=== PATIENT | female | born 1955 | race Caucasian/White ===

== ENCOUNTER 2022-09-30 08:55 | Outpatient (CLI) | payer MEDICARE, SELFPAY ==
[2022-09-30 12:29] LABS: Kit Draw Collected
== END 2022-09-30 08:56 | disposition home or self-care (01) ==
LOC: ANHGOSHLAB 08:57
PROVIDERS: PCP Family Medicine; Visit Provider Family Medicine
DX: M85.80 Other specified disorders of bone density and structure, unspecified site (principal); E55.9 Vitamin D deficiency, unspecified; E53.8 Deficiency of other specified B group vitamins; Z79.899 Other long term (current) drug therapy; Z13.29 Encounter for screening for other suspected endocrine disorder; Z13.220 Encounter for screening for lipoid disorders
CPT/HCPCS: 36415

== ENCOUNTER 2024-07-29 09:45 | Outpatient (CLI) | payer MEDICARE, SELFPAY ==
[2024-07-29 19:19] LABS: Basophils Absolute Auto 0.1 K/mm3 (0.0-0.1); Eosinophils Absolute Auto 0.1 K/mm3 (0-0.3); Eosinophils Percent Auto 1.2 % (0-4.4); Hematocrit 44.3 % (37.0-47.0); Hemoglobin 14.8 g/dL (12.0-15.0); Immature Granulocyte Absolute 0.01 K/mm3 (0.00-0.031); Immature Granulocyte Percent A 0.2 % (0-0.5); Lymphocytes Absolute Auto 1.57 K/mm3 (0.9-3.2); Mean Corpuscular HGB Conc 33.4 g/dl (32-36); Mean Corpuscular Hemoglobin 32.2 pg (26-34); Mean Corpuscular Volume 96.3 fl (80-100); Mean Platelet Volume 12.2 fl (7.4-10.4); Monocytes Absolute Auto 0.6 K/mm3 (0.1-0.6); Monocytes Percent Auto 9.6 % (2.6-8.5); Neutrophils Absolute Auto 3.8 K/mm3 (1.3-6.7); Platelet Count Result 176 k/mm3 (150-375); Red Cell Distribution Width 12.3 % (11.5-14.5); White Blood Count 6.1 K/mm3 (4.5-10.0)
[2024-07-29 20:11] LABS: Vitamin D 25 Hydroxy 63.1 ng/mL
[2024-07-29 20:40] LABS: Hemoglobin A1C 5.8 % (<5.7)
[2024-07-29 22:04] LABS: Alanine Aminotransferase 29 U/L (6-35); Albumin Level 4.3 g/dL (3.5-5.1); Alkaline Phosphatase 69 U/L (38-126); Anion Gap 6 mmol/L (4-12); Aspartate Amino Transferase 55 U/L (14-36); Bilirubin,Total 0.8 mg/dL (0.2-1.3); Blood Urea Nitrogen 25 mg/dL (7-17); Calcium 9.7 mg/dL (8.4-10.2); Carbon Dioxide 29 mmol/L (22-30); Chloride 101 mmol/L (98-107); Cholesterol 192 mg/dL (0-200); Estimated Glomerular Filt Rate > 60; Glucose 86 mg/dL (65-110); HDL Direct 69 mg/dL; Potassium 4.4 mmol/L (3.4-5.0); Sodium 136 mmol/L (137-145); Triglycerides 61 mg/dL (<150)
[2024-07-29 22:14] LABS: LDL Cholesterol Direct 102 mg/dL
--- OUTSIDE RECORDS SUMMARY | 2024-08-05 12:08 | XMS_ITS | Encounter Summary ---
Author Organization [facility] Address [address] [place] [address] Care Team Providers Care Wood Treating Inspector Name Role Phone Gita Bowman MD Primary Care Provider Reason for Referral * Radiology Services - Closed Specialty Diagnoses / Procedures Referred By Contac t Referred To Contact Radiology Diagnoses Visit for screening mammogram Procedures MAMMO SCREEN BILAT W OR WO Mary You MD [address] [place] [address] [facility] [place] [address] [facility] [address] [place] [address] Referral ID Status Reason Start Date Expiration Date V isits Requested Visits Authorized [id number] Closed [facility] CTS 06/18/2020 07/19/2021 1 1 MAKER Reason for Visit * Radiology Services - Closed Specialty Diagnoses / Procedures Referred By Contac t Referred To Contact Radiology Diagnoses Visit for screening mammogram Procedures MAMMO SCREEN BILAT W OR WO Mary You MD [address] [place] [address] [facility] [place] [address] [facility] [address] [place] [address] Referral ID Status Reason Start Date Expiration Date V isits Requested Visits Authorized [id number] Closed STL CTS 06/18/2020 07/19/2021 1 1 Encounter Details Date Type Department Care Team (Latest Contact Info) Description 06/25/2020 1:20 PM MAT MAKER - 06/25/2020 11:59 PM MAT MAKER Hospital Encounter [facility] [address] [facility] [address] [place] [address] Mary Padgett MD [address] [facility] [address] [place] [address] Discharge Disposition: Home or Self Care Social History Tobacco Use Types Packs/Day Years Used Date Smoking Tobacco: Never Assessed Sex and Gender Information Value Date Recorded Sex Assigned at Not on file Gender Identity Not on file Sexual Orientation Not on file COVID-19 Exposure Response Date Recorded In the last month, have you been in contact with someone who was confirmed or suspected to have Coronavirus / COVID-19? No / Unsure 06/25/2020 1:47 PM MAT MAKER documented as of this encounter Plan of Treatment Not on file documented as of this encounter Procedures Procedure Name Priority Date/Time Associated Diagnosis Comments MAMMO SCREEN BILAT W OR WO CAD Routine 06/25/2020 2:12 PM MAT MAKER Visit for screening mammogram documented in this encounter Results * MAMMO SCREEN BILAT W OR WO CAD (06/25/2020 2:12 PM MAT MAKER) Anatomical Region Laterality Modality Breast Bilateral Mammography 06/25/2020 2:12 PM MAT MAKER Impressions 06/26/2020 3:01 PM MAT MAKER IMPRESSION: No suspicious findings to suggest malignancy in either breast. Annual mammography is recommended. OVERALL FINAL ASSESSMENT: ??BI-RADS CATEGORY 1: Negative Narrative 06/26/2020 3:01 PM MAT MAKER BILATERAL SCREENING DIGITAL MAMMOGRAM WITH CAD DATE: 06/25/2020 2:12 PM HISTORY: Routine screening. DICTATION LOCATION: [facility] TECHNIQUE: Full-field digital craniocaudal and mediolateral oblique projections of both breasts were obtained. Computer aided diagnosis was performed. COMPARISON: 06/24/2019 and older BREAST COMPOSITION: Heterogeneously dense, which limits the sensitivity of mammography FINDINGS: No suspicious mass, suspicious microcalcifications, or architectural distortion is identified in either breast. Computer aided detection was used in the interpretation of this examination. Procedure Note Frida Laguerre MD - 06/26/2020 BILATERAL SCREENING DIGITAL MAMMOGRAM WITH CAD DATE: 06/25/2020 2:12 PM HISTORY: Routine screening. DICTATION LOCATION: [facility] TECHNIQUE: Full-field digital craniocaudal and mediolateral oblique projections of both breasts were obtained. Computer aided diagnosis was performed. COMPARISON: 06/24/2019 and older BREAST COMPOSITION: Heterogeneously dense, which limits the sensitivity of mammography FINDINGS: No suspicious mass, suspicious microcalcifications, or architectural distortion is identified in either breast. Computer aided detection was used in the interpretation of this examination. IMPRESSION: No suspicious findings to suggest malignancy in either breast. Annual mammography is recommended. OVERALL FINAL ASSESSMENT: BI-RADS CATEGORY 1: Negative Mary Padgett MD MAMMO ORDERABLES documented in this encounter Visit Diagnoses Diagnosis Visit for screening mammogram Other screening mammogram documented in this encounter Care Teams Wood Treating Inspector Relationship Specialty Start Date End Date Gita Bowman MD [address] [place] [address] PCP - General Family Practice 06/18/20 documented as of this encounter
--- OUTSIDE RECORDS SUMMARY | 2024-08-05 12:08 | XMS_ITS | Encounter Summary ---
Author Organization [email or web address] Address [address] [place] [address] Care Team Providers Care Street Car Mechanic Name Role Phone Gita Bowman MD Primary Care Provider Encounter Details Date Type Department Care Team (Late st Contact Info) Description 09/13/2023 External Device Data STL ABSTRACTION Provider, Abstract NO ADDRESS ON FILE Social History Tobacco Use Types Packs/Day Years Used Date Smoking Tobacco: Never Assessed Sex and Gender Information Value Date Recorded Sex Assigned at Not on file Gender Identity Not on file Sexual Orientation Not on file documented as of this encounter Plan of Treatment Not on file documented as of this encounter Visit Diagnoses Not on filedocumented in this encounter Care Teams Street Car Mechanic Relationship Specialty Start Date End Date Gita Bowman MD [address] [place] [address] PCP - General Family Practice 06/18/20 documented as of this encounter
--- OUTSIDE RECORDS SUMMARY | 2024-08-05 12:08 | XMS_ITS | Encounter Summary ---
Author Organization [employer] Address [address] [place] [address] Care Team Providers Care City Director Name Role Phone Gita Bowman MD Primary Care Provider Encounter Details Date Type Department Care Team (Late st Contact Info) Description 01/30/2024 External Device Data STL ABSTRACTION Provider, Abstract [...] on filedocumented in this encounter Care Teams City Director Relationship Specialty Start Date End Date Gita Bowman MD [address] [place] [address] PCP - General Family Practice 06/18/20 documented as of this encounter
--- OUTSIDE RECORDS SUMMARY | 2024-08-05 12:08 | XMS_ITS | Encounter Summary ---
Author Organization [employer] Address [address] [place] [address] Care Team Providers Care Cnc Mill Programmer Name Role Phone Gita Bowman MD Primary Care Provider Encounter Details Date Type Department Care Team (Late st Contact Info) Description 09/15/2023 External Device Data STL ABSTRACTION Provider, Abstract [...] on filedocumented in this encounter Care Teams Cnc Mill Programmer Relationship Specialty Start Date End Date Gita Bowman MD [address] [place] [address] PCP - General Family Practice 06/18/20 documented as of this encounter
--- OUTSIDE RECORDS SUMMARY | 2024-08-05 12:08 | XMS_ITS | Clinical Summary ---
Author Organization [facility] Address [address] [place] [address] Care Team Providers Care River Expedition Guide Name Role Phone Heaven Moran MD Primary Care Provider Un available Matt Antonio MD Unavailable Source Comments [facility],non-owned Affiliates and Associated Physician Practices is amultiple site organization consisting of ambulatory clinics and hospital sitesin [place], [place], [place] and [place]. This disclosure is being madepursuant to the Care Everywhere program and may not contain all information available regarding this patient. Last updated 18.[facility] Allergies Active Allergy Reactions Criticality Noted Date Comments Sesame Oil 05/24/2017 Medications * Be aware that medications may not be up to date on this document. Alwaysverify current medications with the patient. Medication Sig Dispensed Refills Start Date End Date Status estradiol (ESTRACE) 0.1 MG/GM vaginal cream APPLY 1 GRAM VAGINALLY TWICE WEEKLY 06/27/2019 Active Active Problems Problem Noted Date Diagnosed Date Primary osteoarthritis of right knee 09/20/2019 Immunizations Name Administration Dates Next Due FLU VACCINE QUAD IIV4 PF ID 05/20/2016 INFLUENZA VACCINE, QUADR. (F LUZONE; FLULAVAL; FLUARIX; AFLURIA QUADRIVALENT; 6MO+), 0.5 ML (IIV4) 05/24/2017 iNFLUENZA VACCINE, RECOM-LEI, QUADR. (FLUBLOCK QUADRIVALENT; 18Y+) (RIV4) 06/01/2018 Social History Tobacco Use Types Packs/Day Years Used Date Smoking Tobacco: Never Assessed Sex and Gender Information Value Date Recorded Sex Assigned at Not on file Gender Identity Not on file Sexual Orientation Not on file Last Filed Vital Signs Vital Sign Reading Time Taken Comments Blood Pressure - - Pulse - - Temperature - - Respiratory Rate - - Oxygen Saturation - - Inhaled Oxygen Concentration - - Weight 68.5 kg (151 lb) 09/20/2019 11:00 AM EXPLOSIVES TRUCK DRIVER Height 154.9 cm (5' 1 ) 09/20/2019 11:00 AM EXPLOSIVES TRUCK DRIVER Body Mass Index 28.53 09/20/2019 11:00 AM EXPLOSIVES TRUCK DRIVER Plan of Treatment Health Maintenance Due Date Last Done Comments BONE DENSITY TESTING 1955 COLOGUARD (AGES 45-75) - COL ON CA SCREENING 1955 COLON MONITORING 1953 COLONOSCOPY - COLON CA SCREENING 1953 CT COLONOGRAPHY - COLON CA SCREENING 1955 Colorectal Cancer Screening 1955 FIT - COLON CA SCREENING 1953 FLEX SIG - COLON CA SCREENING 1953 LIPID TESTING 1955 MAMMOGRAM 1953 HEPATITIS C SCREENING 12/02/1971 DTAP/TDAP/TD VACCINES (1 - Tdap) 1972 ZOSTER VACCINE (1 of 2) 12/07/2003 PNEUMOCOCCAL VACCINE 65+ (1 of 1 - PCV) 2018 SCREENING FOR DIABETES 09/20/2019 DEPRESSION SCREENING 08/14/2023 MEDICARE AWV ? CALENDAR YEAR 2023 COVID-19 VACCINE ( - 2023-2 5 season) 2024 INFLUENZA VACCINE (#1) 2024 8, 05/24/2017, 05/20/2016 Respiratory Syncytial Virus (RSV) Vaccine Pt: or over 60 yrs (1 - 1-dose 75+ series) 2028 HEPATITIS B VACCINE Aged Out No longe r eligible based on patient's age to complete this topic HIB VACCINE Aged Out No longer eligi ble based on patient's age to complete this topic HPV VACCINE Aged Out No longer eligi ble based on patient's age to complete this topic MENINGOCOCCAL VACCINE Aged Out No sophia rehana eligible based on patient's age to complete this topic Care Teams River Expedition Guide Relationship Specialty Start Date End Date Heaven Moran MD [address] [facility] [place] [address] PCP - General Family Medicine 09/20/19 [place] [address] [facility] [address] [place] [address] Orthopedic Surgery 09/20/19
--- OUTSIDE RECORDS SUMMARY | 2024-08-05 12:08 | XMS_ITS | Encounter Summary ---
Author Organization [facility] Address [address] [facility] Attn: Epic Prelude ADT [place] [address] Care Team Providers Care Investment Accountant Name Role Phone Gita Bowman MD Primary Care Provider Encounter Details Date Type Department Care Team (Latest Contact Info) Description 06/28/2021 Travel Social History Tobacco Use Types Packs/Day Years [...] have Coronavirus / COVID-19? No / Unsure 06/28/2021 10:00 AM MILITARY PAY TECHNICIAN documented as of this encounter Plan of Treatment Not on file documented as of this encounter Visit Diagnoses Not on filedocumented in this encounter Care Teams Investment Accountant Relationship Specialty Start Date End Date Gita Bowman MD [address] [place] [address] PCP - General Family Practice 06/18/20 documented as of this encounter
--- OUTSIDE RECORDS SUMMARY | 2024-08-05 12:08 | XMS_ITS | Encounter Summary ---
Author Organization [facility] Address [address] [facility] [place] [address] Care Team Providers Care Major League Baseball Umpire Name Role Phone Heaven Moran MD Primary Care Provider Un available Matt Antonio MD Unavailable [phone] Encounter Details Date Type Department Care Team (Latest Contact Info) Description 09/20/2019 11:00 AM GAS FITTER HELPER Ancillary Procedure [facility] Orthopedics - Radiology [address] [place] [phone] [place] [address] [id number] Right knee pain, unspecified chronicity Social History Tobacco Use Types Packs/Day Years Used Date Smoking Tobacco: Never Assessed Sex and Gender Information Value Date Recorded Sex Assigned at Not on file Gender Identity Not on file Sexual Orientation Not on file documented as of this encounter Plan of Treatment Not on file documented as of this encounter Procedures Procedure Name Priority Date/Time Associated Diagnosis Comments XR KNEE RIGHT 3VW Routine 09/20/2019 11: 04 AM GAS FITTER HELPER Right knee pain, unspecified chronicity documented in this encounter Results * XR KNEE RIGHT 3VW (09/20/2019 11:04 AM GAS FITTER HELPER) Anatomical Region Laterality Modality Lower Extremity Computed Radiogr aphy Narrative 09/20/2019 11:06 AM GAS FITTER HELPER Karissa Montelongo, RT(R) ? 09/20/2019 ??3:45 PM See progress notes for results Matt Antonio MD DIAGNOSTIC IMAGING O RDERABLES documented in this encounter Visit Diagnoses Diagnosis Right knee pain, unspecified chronicity documented in this encounter Care Teams Major League Baseball Umpire Relationship Specialty Start Date End Date Heaven Moran MD [address] [place] [address] PCP - General Family Medicine 09/20/19 [place] [address] [facility] [address] [place], [place] [address] Orthopedic Surgery 09/20/19 documented as of this encounter
--- OUTSIDE RECORDS SUMMARY | 2024-08-05 12:08 | XMS_ITS | Encounter Summary ---
Author Organization [facility] Address [address] [place] [address] Attn: Epic Prelude ADT [place] [address] Care Team Providers Care Yarder Puncher Name Role Phone Gita Bowman MD Primary Care Provider Encounter Details Date Type Department Care Team (Latest Contact Info) Description 04/30/2021 Travel Social History Tobacco Use Types Packs/Day [...] have Coronavirus / COVID-19? No / Unsure 04/30/2021 2:29 PM CDT documented as of this encounter Plan of Treatment Not on file documented as of this encounter Visit Diagnoses Not on filedocumented in this encounter Care Teams Yarder Puncher Relationship Specialty Start Date End Date Gita Bowman MD [address] [place] [address] PCP - General Family Practice 06/18/20 documented as of this encounter
--- OUTSIDE RECORDS SUMMARY | 2024-08-05 12:08 | XMS_ITS | Encounter Summary ---
Author Organization [facility] Address [address] [place] [address] Care Team Providers Care Jira Administrator Name Role Phone Gita Bowman MD Primary Care Provider Reason for Referral * Radiology Services (Routine) - Closed Specialty Diagnoses / Procedures Referred By Leonarda shultz Referred To Contact Radiology Diagnoses Visit for screening mammogram Procedures MAMMO SCRN BILAT 3D LUIS W OR WO CAD MAMMO SCREEN BILAT W OR WO CAD CHG SCREENING MAMMOGRAPHY BI 2-VIEW BREAST INC CAD CHG SCREENING DIGITAL BREAST TOMOSYNTHESIS BI Mary Padgett MD [address] [place] [address] [facility] Breast [facility] [place] A [address] [place] [address] Referral ID Status Reason Start Date Expiration Date Visits Re quested Visits Authorized [id number] Closed 04/13/2023 05/13/2024 1 1 L LABOR Reason for Visit * Radiology Services (Routine) - Closed Specialty Diagnoses / Procedures Referred By Leonarda shultz Referred To Contact Radiology Diagnoses Visit for screening mammogram Procedures MAMMO SCRN BILAT 3D LUIS W OR WO CAD MAMMO SCREEN BILAT W OR WO CAD CHG SCREENING MAMMOGRAPHY BI 2-VIEW BREAST INC CAD CHG SCREENING DIGITAL BREAST TOMOSYNTHESIS BI Mary Padgett MD [address] [place] [address] [facility] Breast [facility] [place] A [address] [place] [address] Referral ID Status Reason Start Date Expiration Date Visits Re quested Visits Authorized [id number] Closed 04/13/2023 05/13/2024 1 1 Encounter Details Date Type Department Care Team (Latest Contact Info) Description 08/03/2023 10:20 AM SKILL LABOR - 08/03/2023 11:59 PM SKILL LABOR Hospital Encounter [facility] [place] A [address] [place] [address] Mary Padgett MD [address] [facility] [address] [place] [address] Discharge Disposition: Home or Self Care Social [...] Name Priority Date/Time Associated Diagnosis Comments MAMMO 3D LUIS SCREEN BILAT W OR WO CAD Routine 08/03/2023 11:20 AM SKILL LABOR Visit for screening mammogram documented in this encounter Results * MAMMO SCRN BILAT 3D LUIS W OR WO CAD (08/03/2023 11:20 AM SKILL LABOR) Anatomical Region Laterality Modality Breast Bilateral Mammography Impressions 08/03/2023 1:15 PM SKILL LABOR : ??No mammographic evidence of malignancy. BI-RADS ASSESSMENT: ??1 - Negative RECOMMENDATION: Routine annual screening mammography. Narrative 08/03/2023 1:15 PM SKILL LABOR EXAM: ??MAMMO SCRN BILAT 3D LUIS W OR WO CAD INDICATION: ??Screening COMPARISON: ??08/02/2022 MAMMO SCRN BILAT 3D LUIS W OR WO CAD, 06/28/2021 MAMMO SCRN BILAT 3D LUIS W OR WO CAD, and 06/25/2020 MAMMO SCREEN BILAT W OR WO CAD BREAST COMPOSITION: ??The breasts are heterogeneously dense, which may obscure small masses. FINDINGS: RIGHT BREAST: There are no suspicious masses, calcifications, or areas of architectural distortion. LEFT BREAST: ??There are no suspicious masses, calcifications, or areas of architectural distortion. Mary Padgett MD MAMMO ORDERABLES documented in this encounter Visit Diagnoses Diagnosis Visit for screening mammogram Other screening mammogram documented in this encounter Care Teams Jira Administrator Relationship Specialty Start Date End Date Gita Bowman MD [address] [place] [phone] PCP - General Family Practice 06/18/20 documented as of this encounter
--- OUTSIDE RECORDS SUMMARY | 2024-08-05 12:08 | XMS_ITS | Encounter Summary ---
Author Organization [facility] Address [address] [place] [address] Care Team Providers Care Aircraft Servicer Name Role Phone Sheree Orantes MD Primary Care Provider [phone] Reason for Visit * Reason Comments Imm Inj flu shot Encounter Details Date Type Department Care Team (Late st Contact Info) Description 05/24/2017 6:20 PM CDT Office Visit [facility] [address] [address] Provider, [facility] Need for vaccination (Primary Dx) Social History Tobacco Use Types Packs/Day Years Used Date Smoking Tobacco: Never Assessed Sex and Gender Information Value Date Recorded Sex Assigned at Not on file Gender Identity Not on file Sexual Orientation Not on file documented as of this encounter Patient Instructions * Patient Instructions* Donny Chirinos, CIRCULATION TENDER-ALLIANCE DIRECTOR - 05/24/2017 10:09 AM CDT Influenza Vaccine WHAT YOU NEED TO KNOW: The influenza vaccine is an injection given to help prevent influenza (flu). The flu is caused by avirus. The virus spreads from person to person through coughing and sneezing. Several types of viruses cause the flu. The viruses interchange agent time, so new vaccines are made each year. The vaccine begins to protect you about 2 weeks after you get it. The flu shot usually injected into your upper arm. It may be given in your thigh. DISCHARGE INSTRUCTIONS: Call 911 for any of the following: ?? Your mouth and throat are swollen. ?? You are wheezing or have trouble breathing. ?? You have chest pain or your heart is beating faster than normal for you. ?? You feel like you are going to faint. Seek care immediately if: ?? Your face is red or swollen. ?? You have hives that spread over your body. ?? You feel weak or dizzy. Contact your healthcare provider if: ?? You have increased pain, redness, or swelling around the area where the shot was given. ?? You have questions or concerns about the influenza vaccine. Apply a warm compress to the injection area if you got a flu shot. Apply the compress as directed to decrease pain and swelling. Follow up with your healthcare provider as directed: Write down your questions so you remember to ask them during your visits. ?? 2016 [employer]. Information is for End User's use only and may not be sold, redistributed or otherwise used for commercial purposes. All illustrations and images included in CareNotes?? are the copyrighted property of [employer]. or [employer]. The above information is an medicine aide only. It is not intended as medical advice for individual conditions or treatments. Talk to your doctor, nurse or pharmacist before following any medical regimen to see if it is safe and effective for you. documented in this encounter Progress Notes * Donny Chirinos APRN-CNP - 05/24/2017 10:07 AM CDT Pt tolerated injection well. Pt advised to seek medical attention for severe reaction Including: hives, swelling of the face and/or throat, difficulty breathing, fever, a fast heartbeat, dizziness, and weakness. If you think you are having a severe allergic reaction or other emergency call 911 Educational material given documented in this encounter Plan of Treatment Not on file documented as of this encounter Visit Diagnoses Diagnosis Need for vaccination- Primary Need for prophylactic vaccination and inoculation against unspecified single disease documented in this encounter Care Teams Aircraft Servicer Relationship Specialty Start Date End Date Sheree Orantes MD PCP - General Family Medicine 05/20/16 09/19/19 documented as of this encounter
--- OUTSIDE RECORDS SUMMARY | 2024-08-05 12:08 | XMS_ITS | Encounter Summary ---
Author Organization [facility] Address [address] [place] [address] Care Team Providers Care Credit Officer Name Role Phone Gita Bowman MD Primary Care Provider Reason for Visit * Radiology Services (Routine) - Closed Specialty Diagnoses / Procedures Referred By Contac t Referred To Contact Radiology Diagnoses Breast cancer screening by mammogram Procedures MAMMO SCRN BILAT 3D LUIS W OR WO CAD MAMMO SCREEN BILAT W OR WO CAD CHG SCREENING MAMMOGRAPHY BI 2-VIEW BREAST INC CAD CHG SCREENING DIGITAL BREAST TOMOSYNTHESIS BI Gita Bowman MD [address] [place] [address] [email or web address] Breast [facility] [place] A [address] [place] [address] Referral ID Status Reason Start Date Expiration Date Visits Re quested Visits Authorized [id number] Closed 04/30/2021 05/31/2022 1 1 Encounter Details Date Type Department Care Team (Late st Contact Info) Description 06/28/2021 10:00 AM SCHOOL BUS INSPECTOR - 06/28/2021 11:59 PM [facility] Hospital Encounter [facility] [place] A [address] [place] [address] Gita Bowman MD [address] [place] [address] Discharge Disposition: Home or Self Care Social [...] COVID-19? No / Unsure 06/28/2021 10:00 AM SCHOOL BUS INSPECTOR documented as of this encounter Plan of Treatment Not on file documented as of this encounter Procedures Procedure Name Priority Date/Time Associated Diagnosis Comments MAMMO 3D LUIS SCREEN BILAT W OR WO CAD Routine 06/28/2021 10:35 AM SCHOOL BUS INSPECTOR Breast cancer screening by mammogram documented in this encounter Results * MAMMO SCRN BILAT 3D LUIS W OR WO CAD (06/28/2021 10:35 AM SCHOOL BUS INSPECTOR) Anatomical Region Laterality Modality Breast Bilateral Mammography 06/28/2021 10:3 5 AM SCHOOL BUS INSPECTOR Impressions 06/28/2021 1:06 PM SCHOOL BUS INSPECTOR IMPRESSION: Stable screening mammogram. Recommend routine followup. OVERALL FINAL ASSESSMENT: BI-RADS CATEGORY 1: Negative DICTATION LOCATION: [facility] Narrative 06/28/2021 1:06 PM SCHOOL BUS INSPECTOR BILATERAL DIGITAL SCREENING MAMMOGRAPHY WITH CAD WITH TOMOSYNTHESIS,06/28/2021 CLINICAL HISTORY: Annual screening study. ?? COMPARISON: Comparison is made to multiple prior mammograms dating back to 05/18/2017. TECHNIQUE: A bilateral screening mammogram was performed. Low-dose full-field digital breast tomosynthesis examination was performed with 2D and 3D acquisitions. Examination is read in conjunction with computer aided detection. FINDINGS: ??The breast parenchyma is heterogeneously dense. No new dominant masses, suspicious calcifications or areas of parenchymal asymmetry or distortion are identified. CAD was utilized. ?? Procedure Note Yelena Fish MD - 06/28/2021 BILATERAL DIGITAL SCREENING MAMMOGRAPHY WITH CAD WITH TOMOSYNTHESIS,06/28/2021 CLINICAL HISTORY: Annual screening study. COMPARISON: Comparison is made to multiple prior mammograms dating back to 05/18/2017. TECHNIQUE: A bilateral screening mammogram was performed. Low-dose full-field digital breast tomosynthesis examination was performed with 2D and 3D acquisitions. Examination is read in conjunction with computer aided detection. FINDINGS: The breast parenchyma is heterogeneously dense. No new dominant masses, suspicious calcifications or areas of parenchymal asymmetry or distortion are identified. CAD was utilized. IMPRESSION: Stable screening mammogram. Recommend routine followup. OVERALL FINAL ASSESSMENT: BI-RADS CATEGORY 1: Negative DICTATION LOCATION: [facility] Gita Bowman MD MAMMO ORDERABL ES documented in this encounter Visit Diagnoses Diagnosis Breast cancer screening by mammogram documented in this encounter Care Teams Credit Officer Relationship Specialty Start Date End Date Gita Bowman MD [address] [place] [phone] PCP - General Family Practice 06/18/20 documented as of this encounter
--- OUTSIDE RECORDS SUMMARY | 2024-08-05 12:08 | XMS_ITS | Encounter Summary ---
Author Organization [facility] Address [facility] [place] [address] Care Team Providers Care Fabric Awning Repairer Name Role Phone Heaven Moran MD Primary Care Provider Un available Matt Antonio MD Unavailable Reason for Visit * Reason Comments Pain Knee PRESCHOOL ADVISER RIGHT KNEE PAIN Encounter Details Date Type Department Care Team (Latest Contact Info) Description 09/20/2019 10:30 AM MARKET RESEARCH ASSISTANT Office Visit [facility] Orthopedics [address] [place] [phone] [place] [address] [address] Primary osteoarthritis of right knee (Primary Dx); Right knee pain, unspecified chronicity Social History Tobacco Use Types Packs/Day Years Used Date Smoking Tobacco: Never Assessed Sex and Gender Information Value Date Recorded Sex Assigned at Not on file Gender Identity Not on file Sexual Orientation Not on file documented as of this encounter Last Filed Vital Signs Vital Sign Reading Time Taken Comments Blood Pressure - - Pulse - - Temperature - - Respiratory Rate - - Oxygen Saturation - - Inhaled Oxygen Concentration - - Weight 68.5 kg (151 lb) 09/20/2019 11:00 AM MARKET RESEARCH ASSISTANT Height 154.9 cm (5' 1 ) 09/20/2019 11:00 AM MARKET RESEARCH ASSISTANT Body Mass Index 28.53 09/20/2019 11:00 AM MARKET RESEARCH ASSISTANT documented in this encounter Progress Notes * Moon Nunez PA-C - 09/20/2019 11:34 AM CST Subjective: Renetta Brock is a 63 year old female who presents with right knee concerns. She recently had a bone density test done and is osteopenic. She is in our office today to discuss this. Her right knee has been injured in the past and she had an arthroscopic surgery. She denies pain in the knee at this time. She stays active with fitness classes, yelitza chi, water exercising and biking. Current Outpatient Medications Medication Sig Dispense Refill ??? estradiol (ESTRACE) 0.1 MG/GM vaginal cream APPLY 1 GRAM VAGINALLY TWICE WEEKLY No current facility-administered medications for this visit. Allergies Allergen Reactions ??? Seeds [Sesame Oil] Social history: She denies the use to alcohol or tobacco. The family history is not pertinent to the HPI. Objective: General inspection: she is a pleasant 5'1 , 151 lb female with normal mood and affect. She walks with a normal gait using no device. MS: she has pain-free range of motion of both hips. Right knee: The right knee is with varus alignment and instability Skin and Extremities: The skin of the lower extremities is without rashes, lesions, or ulcerations.She has no edema in either lower extremities. RADIOGRAPHS: Weightbearing x-rays show severe, erosive degenerative changes in the medial and patellofemoral joint lines of both knees Impression: DJD right knee, symptomatic Plan: I educated the patient on osteoarthritis and we discussed treatment options. During this visit, we discussed exercising and conservative management for her knee since she is not having knee pain. She will follow-up with her PCP about her bone density. She is to call the office with any concernsor questions and is to follow up as needed. She demonstrated understanding of this plan and has no other questions or concerns at this time. Dr. Antonio agrees with this examination, evaluation, and t reatment plan. Orders Placed This Encounter ??? XR KNEE RIGHT 3VW Moon Nunez PA-C ET RESEARCH ASSISTANT * Tati Hernandez - 09/20/2019 10:56 AM CST PRESCHOOL ADVISER RIGHT KNEE PAIN ET RESEARCH ASSISTANT documented in this encounter Procedure Notes * Karissa Montelongo RT(R) - 09/20/2019 11:06 AM CSTAssociated Order(s): XR KNEE RIGHT 3VW See progress notes for results ET RESEARCH ASSISTANT documented in this encounter Plan of Treatment Not on file documented as of this encounter Procedures Procedure Name Priority Date/Time Associated Diagnosis Comments XR KNEE RIGHT 3VW Routine 09/20/2019 11: 04 AM MARKET RESEARCH ASSISTANT Right knee pain, unspecified chronicity documented in this encounter Results * XR KNEE RIGHT 3VW (09/20/2019 11:04 AM MARKET RESEARCH ASSISTANT) Anatomical Region Laterality Modality Lower Extremity Computed Radiogr aphy Narrative 09/20/2019 11:06 AM MARKET RESEARCH ASSISTANT Karissa Montelongo RT(R) ? 09/20/2019 ??3:45 PM See progress notes for results Matt Antonio MD DIAGNOSTIC IMAGING O RDERABLES documented in this encounter Visit Diagnoses Diagnosis Primary osteoarthritis of right knee- Primary Primary localized osteoarthrosis, lower leg Right knee pain, unspecified chronicity Right knee pain, unspecified chronicity documented in this encounter Care Teams Fabric Awning Repairer Relationship Specialty Start Date End Date Heaven Moran MD [address] [facility] [place] [address] PCP - General Family Medicine 09/20/19 [place] [address] [place] [address] Orthopedic Surgery 09/20/19 documented as of this encounter
--- OUTSIDE RECORDS SUMMARY | 2024-08-05 12:08 | XMS_ITS | Encounter Summary ---
Author Organization [employer] Address [address] [place] [address] Care Team Providers Care Territory Service Representative Name Role Phone Gita Bowman MD Primary Care Provider Encounter Details Date Type Department Care Team (Late st Contact Info) Description 11/28/2023 External Device Data STL ABSTRACTION Provider, Abstract [...] on filedocumented in this encounter Care Teams Territory Service Representative Relationship Specialty Start Date End Date Gita Bowman MD [address] [place] [phone] PCP - General Family Practice 06/18/20 documented as of this encounter
--- OUTSIDE RECORDS SUMMARY | 2024-08-05 12:08 | XMS_ITS | Encounter Summary ---
Author Organization [facility] Address [address] [place] [address] Care Team Providers Care Wind Project Manager Name Role Phone Gita Bowman MD Primary Care Provider Encounter Details Date Type Department Care Team (Late st Contact Info) Description 04/04/2024 External Device Data STL ABSTRACTION Provider, Abstract [...] on filedocumented in this encounter Care Teams Wind Project Manager Relationship Specialty Start Date End Date Gita Bowman MD [address] [place] [phone] PCP - General Family Practice 06/18/20 documented as of this encounter
--- OUTSIDE RECORDS SUMMARY | 2024-08-05 12:08 | XMS_ITS | Encounter Summary ---
Author Organization [facility] Address [address] [place] [address] Care Team Providers Care Upsetter Setter Up Name Role Phone Gita Bowman MD Primary Care Provider Encounter Details Date Type Department Care Team (Late st Contact Info) Description 05/28/2024 External Device Data STL ABSTRACTION Provider, Abstract [...] on filedocumented in this encounter Care Teams Upsetter Setter Up Relationship Specialty Start Date End Date Gita Bowman MD [address] [place] [phone] PCP - General Family Practice 06/18/20 documented as of this encounter
--- OUTSIDE RECORDS SUMMARY | 2024-08-05 12:08 | XMS_ITS | Encounter Summary ---
Author Organization [facility] Address [address] [place] [address] Care Team Providers Care Veterinary Surgery Technician Name Role Phone Heaven Moran MD Primary Care Provider Un available Matt Antonio MD Unavailable [phone] Encounter Details Date Type Department Care Team (Late st Contact Info) Description 11/09/2020 Orders Only [facility] - COVID Vax [address] [place] [address] Naeem Maldonado MD [address] [place] [address] Need for vaccination Social History Tobacco Use Types Packs/Day Years Used Date Smoking Tobacco: Never Assessed Sex and Gender Information Value Date Recorded Sex Assigned at Not on file Gender Identity Not on file Sexual Orientation Not on file documented as of this encounter Plan of Treatment Not on file documented as of this encounter Visit Diagnoses Diagnosis Need for vaccination Need for prophylactic vaccination and inoculation against unspecified single disease documented in this encounter Care Teams Veterinary Surgery Technician Relationship Specialty Start Date End Date Heaven Moran MD [address] [place] [address] PCP - General Family Medicine 09/20/19 [place] [address] [place] [address] Orthopedic Surgery 09/20/19 documented as of this encounter
--- OUTSIDE RECORDS SUMMARY | 2024-08-05 12:08 | XMS_ITS | Encounter Summary ---
Author Organization [employer] Address [address] [place] [address] Care Team Providers Care Health Analyst Name Role Phone Gita Bowman MD Primary Care Provider Reason for Referral * Radiology Services (Routine) - Closed Specialty Diagnoses / Procedures Referred By Leonarda shultz Referred To Contact Radiology Diagnoses Breast cancer screening by mammogram Procedures MAMMO SCRN BILAT 3D LUIS W OR WO CAD MAMMO SCREEN BILAT W OR WO CAD CHG SCREENING MAMMOGRAPHY BI 2-VIEW BREAST INC CAD CHG SCREENING DIGITAL BREAST TOMOSYNTHESIS BI Mary Padgett MD [address] [address] [place] [address] [facility] [place] [facility] [address] [place] [address] Referral ID Status Reason Start Date Expiration Date Visits Re quested Visits Authorized [id number] Closed 07/04/2022 08/04/2023 1 1 TRAFFIC INSTRUCTOR Reason for Visit * Radiology Services (Routine) - Closed Specialty Diagnoses / Procedures Referred By Leonarda t Referred To Contact Radiology Diagnoses Breast cancer screening by mammogram Procedures MAMMO SCRN BILAT 3D LUIS W OR WO CAD MAMMO SCREEN BILAT W OR WO CAD CHG SCREENING MAMMOGRAPHY BI 2-VIEW BREAST INC CAD CHG SCREENING DIGITAL BREAST TOMOSYNTHESIS BI Mary Padgett MD [address] [place] [address] [facility] [place] [facility] [address] [place] [address] Referral ID Status Reason Start Date Expiration Date Visits Re quested Visits Authorized [id number] Closed 07/04/2022 08/04/2023 1 1 Encounter Details Date Type Department Care Team (Latest Contact Info) Description 08/02/2022 12:18 PM AIR TRAFFIC INSTRUCTOR - 08/02/2022 11:59 PM AIR TRAFFIC INSTRUCTOR Hospital Encounter [facility] [place] [facility] [address] [place] [address] Mary Padgett MD [address] [facility] [address] [place] [address] Discharge Disposition: Home or Self Care Social History Tobacco Use Types Packs/Day Years Used Date Smoking Tobacco: Never Assessed Sex and Gender Information Value Date Recorded Sex Assigned at Not on file Gender Identity Not on file Sexual Orientation Not on file COVID-19 Exposure Response Date Recorded In the last 10 days, have yo u been in contact with someone who was confirmed or suspected to have Coronavirus/COVID-19? No / Unsure 08/02/2022 12:15 PM AIR TRAFFIC INSTRUCTOR documented as of this encounter Plan of Treatment Not on file documented as of this encounter Procedures Procedure Name Priority Date/Time Associated Diagnosis Comments MAMMO 3D LUIS SCREEN BILAT W OR WO CAD Routine 08/02/2022 12:33 PM AIR TRAFFIC INSTRUCTOR Breast cancer screening by mammogram documented in this encounter Results * MAMMO SCRN BILAT 3D LUIS W OR WO CAD (08/02/2022 12:33 PM AIR TRAFFIC INSTRUCTOR) Anatomical Region Laterality Modality Breast Bilateral Mammography 08/02/2022 12:3 4 PM AIR TRAFFIC INSTRUCTOR Impressions 08/02/2022 4:19 PM AIR TRAFFIC INSTRUCTOR IMPRESSION: ?? Negative bilateral screening mammogram. Recommend routine followup. ?? OVERALL FINAL ASSESSMENT: ??BI-RADS CATEGORY 1 - Negative DICTATION LOCATION: [facility] Narrative 08/02/2022 4:19 PM AIR TRAFFIC INSTRUCTOR BILATERAL SCREENING DIGITAL MAMMOGRAM WITH 3D TOMOSYNTHESIS AND CAD DATE: 08/02/2022 12:33 PM HISTORY: Screening. COMPARISON: Comparison is made to prior mammograms dated 06/28/2021 to 05/31/2018. TECHNIQUE: A bilateral screening mammogram was performed. Low-dose full-field digital breast tomosynthesis examination was performed with 2D and 3D acquisitions. Examination is read in conjunction with computer aided detection. ?? BREAST COMPOSITION: Heterogeneously dense, which limits the sensitiivity of mammography FINDINGS: No new masses, suspicious calcifications, or areas of asymmetry or distortion are identified. The images were reviewed using the CAD system. ?? Procedure Note Yelena Fish MD - 08/02/2022 BILATERAL SCREENING DIGITAL MAMMOGRAM WITH 3D TOMOSYNTHESIS AND CAD DATE: 08/02/2022 12:33 PM HISTORY: Screening. COMPARISON: Comparison is made to prior mammograms dated 06/28/2021 to 05/31/2018. TECHNIQUE: A bilateral screening mammogram was performed. Low-dose full-field digital breast tomosynthesis examination was performed with 2D and 3D acquisitions. Examination is read in conjunction with computer aided detection. BREAST COMPOSITION: Heterogeneously dense, which limits the sensitiivity of mammography FINDINGS: No new masses, suspicious calcifications, or areas of asymmetry or distortion are identified. The images were reviewed using the CAD system. IMPRESSION: Negative bilateral screening mammogram. Recommend routine followup. OVERALL FINAL ASSESSMENT: BI-RADS CATEGORY 1 - Negative DICTATION LOCATION: [facility] Mary Padgett MD MAMMO ORDERABLES documented in this encounter Visit Diagnoses Diagnosis Breast cancer screening by mammogram documented in this encounter Care Teams Health Analyst Relationship Specialty Start Date End Date Gita Bowman MD [address] [place] [address] PCP - General Family Practice 06/18/20 documented as of this encounter
--- OUTSIDE RECORDS SUMMARY | 2024-08-05 12:08 | XMS_ITS | Encounter Summary ---
Author Organization [employer] Address [address] [place] [address] Care Team Providers Care Wire Tester Name Role Phone Gita Bowman MD Primary [...] on filedocumented in this encounter Care Teams Wire Tester Relationship Specialty Start Date End Date Gita Bowman MD [address] [place] [phone] PCP - General Family Practice 06/18/20 documented as of this encounter
--- OUTSIDE RECORDS SUMMARY | 2024-08-05 12:08 | XMS_ITS | Clinical Summary ---
Author Organization [employer] [facility] Matthew Anders Address [address] [facility] [place] [address] Phone Care Team Providers Care Electric Motor And Generator Assembler Name Role Phone Gita Bowman MD Primary Care Provider Encounters Date Type Department Care Team Description 06/12/2024 External Device Data STL ABSTRACTION Provider, Abstract 05/28/2024 External Device Data STL ABSTRACTION Provider, Abstract 05/14/2024 External Device Data STL ABSTRACTION Provider, Abstract from Last 3 Months Family History Medical History Relation Name Comments Breast Cancer Maternal Grandmother 40's Cancer Neg Hx Ovarian Cancer Neg Hx Relation Name Status Comments Maternal Grandmother Social History Tobacco Use Types Packs/Day Years Used Date Smoking Tobacco: Never Assessed Sex and Gender Information Value Date Recorded Sex Assigned at Not on file Gender Identity Not on file Sexual Orientation Not on file Plan of Treatment Health Maintenance Due Date Last Done Comments DTAP/TDAP/TD VACCINES (1 - Tdap) 1972 COLORECTAL SCREENING 1998 Colorectal Cancer Screening 1998 FIT-DNA Q 3 years 1998 FIT/FOBT Q 1 year 1998 Flex Sig/CT Colonography Q 5 years 1998 ZOSTER VACCINE (1 of 2) 12/07/2003 OSTEOPOROSIS SCREENING 2018 PNEUMOCOCCAL VACCINE 65+ YEA RS (1 of 1 - PCV) 2018 INFLUENZA VACCINE (#1) 2024 8, 05/24/2017, 05/20/2016 COVID-19 Vaccine (2 - 2023-2 5 season) 2024 06/11/2021 BREAST CANCER SCREENING 08/03/2024 08/03/20 23, 08/02/2022, 06/28/2021, Additional history exists RSV VACCINE (60+ or ) (1 - 1-dose 75+ series) 2028 Procedures Procedure Name Priority Date/Time Associated Diagnosis Comments MAMMO 3D LUIS SCREEN BILAT W OR WO CAD Routine 08/03/2023 11:20 AM PRESS CLIPPINGS CUTTER AND PASTER Visit for screening mammogram from Last 3 Months or Most Recently Relevant to Health Maintenance Results * MAMMO SCRN BILAT 3D LUIS W OR WO CAD (08/03/2023 11:20 AM PRESS CLIPPINGS CUTTER AND PASTER) Anatomical Region Laterality Modality Breast Bilateral Mammography Impressions 08/03/2023 1:15 PM PRESS CLIPPINGS CUTTER AND PASTER : ??No mammographic evidence of malignancy. BI-RADS ASSESSMENT: ??1 - Negative RECOMMENDATION: Routine annual screening mammography. Narrative 08/03/2023 1:15 PM PRESS CLIPPINGS CUTTER AND PASTER EXAM: ??MAMMO SCRN BILAT 3D LUIS W [...] architectural distortion. Mary Padgett MD MAMMO ORDERABLES from Last 3 Months or Most Recently Relevant to Health Maintenance Care Teams Electric Motor And Generator Assembler Relationship Specialty Start Date End Date Gita Bowman MD [address] [place] [address] PCP - General Family Practice 06/18/20
--- OUTSIDE RECORDS SUMMARY | 2024-08-05 12:08 | XMS_ITS | Encounter Summary ---
Author Organization [employer] Address [address] [place] [address] Care Team Providers Care Digital Community Manager Name Role Phone Gita Bowman MD Primary Care Provider Encounter Details Date Type Department Care Team (Late st Contact Info) Description 11/29/2023 External Device Data STL ABSTRACTION Provider, Abstract [...] on filedocumented in this encounter Care Teams Digital Community Manager Relationship Specialty Start Date End Date Gita Bowman MD [address] [place] [phone] PCP - General Family Practice 06/18/20 documented as of this encounter
--- OUTSIDE RECORDS SUMMARY | 2024-08-05 12:08 | XMS_ITS | Encounter Summary ---
Author Organization [employer] Address [address] [place] [address] Care Team Providers Care Trim Die Maker Name Role Phone Gita Bowman MD Primary Care Provider Encounter Details Date Type Department Care Team (Late st Contact Info) Description 10/02/2023 External Device Data STL ABSTRACTION Provider, Abstract [...] on filedocumented in this encounter Care Teams Trim Die Maker Relationship Specialty Start Date End Date Gita Bowman MD [address] [place] [phone] PCP - General Family Practice 06/18/20 documented as of this encounter
--- OUTSIDE RECORDS SUMMARY | 2024-08-05 12:08 | XMS_ITS | Encounter Summary ---
Author Organization [facility] Address [address] [place] [address] Attn: Epic Prelude ADT [place]NY R[place]LED[place] [address] Care Team Providers Care Duct Maker Name Role Phone Gita Bowman MD Primary Care Provider Encounter Details Date Type Department Care Team (Latest Contact Info) Description 08/02/2022 Travel Social History Tobacco Use Types Packs/Day [...] Coronavirus/COVID-19? No / Unsure 08/02/2022 12:15 PM WHIPPED TOPPING SUPERVISOR documented as of this encounter Plan of Treatment Not on file documented as of this encounter Visit Diagnoses Not on filedocumented in this encounter Care Teams Duct Maker Relationship Specialty Start Date End Date Gita Bowman MD [address] [place] [phone] PCP - General Family Practice 06/18/20 documented as of this encounter
--- OUTSIDE RECORDS SUMMARY | 2024-08-05 12:08 | XMS_ITS | Encounter Summary ---
Author Organization [facility] Address [address] [facility] Attn: Epic Prelude ADT [place] [address] Care Team Providers Care Mileage Clerk Name Role Phone Gita Bowman MD Primary Care Provider Encounter Details Date Type Department Care Team (Latest Contact Info) Description 06/18/2020 Travel Social History Tobacco Use Types Packs/Day [...] have Coronavirus / COVID-19? No / Unsure 06/18/2020 3:41 PM ARCHITECTURAL ENGINEER documented as of this encounter Plan of Treatment Not on file documented as of this encounter Visit Diagnoses Not on filedocumented in this encounter Care Teams Mileage Clerk Relationship Specialty Start Date End Date Gita Bowman MD [address] [place] [phone] PCP - General Family Practice 06/18/20 documented as of this encounter
--- OUTSIDE RECORDS SUMMARY | 2024-08-05 12:08 | XMS_ITS | Encounter Summary ---
Author Organization [facility] Address [address] [place] [address] Care Team Providers Care Relief Docking Master Name Role Phone Sheree Orantes MD Primary Care Provider [phone] Reason for Visit * Reason Comments Imm Inj Encounter Details Date Type Department Care Team (Late st Contact Info) Description 05/20/2016 5:45 PM CDT Office Visit [facility] AT [address] [phone] Need for vaccination (Primary Dx) Social History Tobacco Use Types Packs/Day Years Used Date Smoking Tobacco: Never Assessed Sex and Gender Information Value Date Recorded Sex Assigned at Not on file Gender Identity Not on file Sexual Orientation Not on file documented as of this encounter Patient Instructions * Patient Instructions* Danette Baldwin APRN-CNP - 05/20/2016 10:54 AM CDT May apply ice or cold pack to injection site May take tylenol or ibuprofen per package directions for pain or fever. Follow up if needed with any questions or concerns. documented in this encounter Progress Notes * Danette Baldwin APRN-CNP - 05/20/2016 10:52 AM CDT Pt is here for a flu vaccine May apply ice or cold pack to injection site May take tylenol or ibuprofen per package directions for pain or fever. Follow up if needed with any questions or concerns. documented in this encounter Plan of Treatment Not on file documented as of this encounter Visit Diagnoses Diagnosis Need for vaccination- Primary Need for prophylactic vaccination and inoculation against unspecified single disease documented in this encounter Care Teams Relief Docking Master Relationship Specialty Start Date End Date Sheree Orantes MD PCP - General Family Medicine 05/20/16 09/19/19 documented as of this encounter
--- OUTSIDE RECORDS SUMMARY | 2024-08-05 12:08 | XMS_ITS | Encounter Summary ---
Author Organization [employer] Address [address] [place] [address] Care Team Providers Care Cardiology Physician Name Role Phone Gita Bowman MD Primary Care Provider Encounter Details Date Type Department Care Team (Late st Contact Info) Description 06/12/2024 External Device Data STL ABSTRACTION [...] on filedocumented in this encounter Care Teams Cardiology Physician Relationship Specialty Start Date End Date Gita Bowman MD [address] [place] [phone] PCP - General Family Practice 06/18/20 documented as of this encounter
--- OUTSIDE RECORDS SUMMARY | 2024-08-05 12:08 | XMS_ITS | Encounter Summary ---
Author Organization [employer] Address [address] [place] [address] Care Team Providers Care Molder Helper Name Role Phone Gita Bowman MD Primary Care Provider Encounter Details Date Type Department Care Team (Late st Contact Info) Description 04/23/2024 External Device Data STL ABSTRACTION Provider, Abstract [...] on filedocumented in this encounter Care Teams Molder Helper Relationship Specialty Start Date End Date Gita Bowman MD [address] [place] [phone] PCP - General Family Practice 06/18/20 documented as of this encounter
--- OUTSIDE RECORDS SUMMARY | 2024-08-05 12:08 | XMS_ITS | Encounter Summary ---
Author Organization [facility] Address [address] [facility] Attn: Epic Prelude ADT [place] [address] Care Team Providers Care Stock Transfer Clerk Name Role Phone Gita Bowman MD Primary Care Provider Encounter Details Date Type Department Care Team (Latest Contact Info) Description 06/25/2020 Travel Social History Tobacco Use Types Packs/Day [...] COVID-19? No / Unsure 06/25/2020 1:47 PM VP PRODUCT MARKETING documented as of this encounter Plan of Treatment Not on file documented as of this encounter Visit Diagnoses Not on filedocumented in this encounter Care Teams Stock Transfer Clerk Relationship Specialty Start Date End Date Gita Bowman MD [address] [place] [phone] PCP - General Family Practice 06/18/20 documented as of this encounter
--- OUTSIDE RECORDS SUMMARY | 2024-08-05 12:08 | XMS_ITS | Encounter Summary ---
Author Organization [facility] Address [address] [place] [address] Care Team Providers Care Residential Living Assistant Name Role Phone Gita Bowman MD Primary Care Provider Encounter Details Date Type Department Care Team (Late st Contact Info) Description 06/29/2023 External Device Data STL ABSTRACTION Provider, Abstract [...] on filedocumented in this encounter Care Teams Residential Living Assistant Relationship Specialty Start Date End Date Gita Bowman MD [address] [place] [phone] PCP - General Family Practice 06/18/20 documented as of this encounter
--- OUTSIDE RECORDS SUMMARY | 2024-08-05 12:08 | XMS_ITS | Encounter Summary ---
Author Organization [facility] Address [address] [facility] [place] [address] Care Team Providers Care Broadcast Operations Engineer Name Role Phone Sheree Orantes MD Primary Care Provider [phone] Reason for Visit * Reason Comments Imm Inj Encounter Details Date Type Department Care Team (Late st Contact Info) Description 06/01/2018 4:20 PM CDT Office Visit [facility] AT [address] [address] Provider, [facility] Need for vaccination (Primary Dx) Social History Tobacco Use Types Packs/Day Years Used Date Smoking Tobacco: Never Assessed Sex and Gender Information Value Date Recorded Sex Assigned at Not on file Gender Identity Not on file Sexual Orientation Not on file documented as of this encounter Progress Notes * Ke Lassiter APRN-CNP - 06/01/2018 3:11 PM CDT Immunization History Administered Date(s) Administered ??? FLU VACCINE QUAD IIV4 PF ID 05/20/2016 ??? FLU VACCINE QUAD IIV4 SPLIT PF IM 05/24/2017 ??? FLU VACCINE QUAD RIV4 PF IM 06/01/2018 Pt tolerated well documented in this encounter Plan of Treatment Not on file documented as of this encounter Visit Diagnoses Diagnosis Need for vaccination- Primary Need for prophylactic vaccination and inoculation against unspecified single disease documented in this encounter Care Teams Broadcast Operations Engineer Relationship Specialty Start Date End Date Sheree Orantes MD PCP - General Family Medicine 05/20/16 09/19/19 documented as of this encounter
--- OUTSIDE RECORDS SUMMARY | 2024-08-05 12:08 | XMS_ITS | Encounter Summary ---
Author Organization [employer] Address [address] [place] [address] Care Team Providers Care E Commerce Developer Name Role Phone Gita Bowman MD Primary Care Provider Encounter Details Date Type Department Care Team (Late st Contact Info) Description 09/06/2023 External Device Data STL ABSTRACTION Provider, Abstract [...] on filedocumented in this encounter Care Teams E Commerce Developer Relationship Specialty Start Date End Date Gita Bowman MD [address] [place] [phone] PCP - General Family Practice 06/18/20 documented as of this encounter
--- OUTSIDE RECORDS SUMMARY | 2024-08-05 12:08 | XMS_ITS | Encounter Summary ---
Author Organization [employer] Address [address] [place] [address] Care Team Providers Care Hide Salter Name Role Phone Gita Bowman MD Primary [...] on filedocumented in this encounter Care Teams Hide Salter Relationship Specialty Start Date End Date Gita Bowman MD [address] [place] [phone] PCP - General Family Practice 06/18/20 documented as of this encounter
--- OUTSIDE RECORDS SUMMARY | 2024-08-05 12:08 | XMS_ITS | Encounter Summary ---
Author Organization [employer] Address [address] [place] [address] Care Team Providers Care Fuel Cell Builder Name Role Phone Gita Bowman MD Primary Care Provider Encounter Details Date Type Department Care Team (Late st Contact Info) Description 01/16/2024 External Device Data STL ABSTRACTION Provider, Abstract [...] on filedocumented in this encounter Care Teams Fuel Cell Builder Relationship Specialty Start Date End Date Gita Bowman MD [address] [place] [phone] PCP - General Family Practice 06/18/20 documented as of this encounter
--- OUTSIDE RECORDS SUMMARY | 2024-08-05 12:08 | XMS_ITS | Encounter Summary ---
Author Organization [employer] Address [address] [place] [address] Care Team Providers Care Medical Billing Coordinator Name Role Phone Gita Bowman MD Primary Care Provider Encounter Details Date Type Department Care Team (Late st Contact Info) Description 11/07/2023 External Device Data STL ABSTRACTION Provider, Abstract [...] on filedocumented in this encounter Care Teams Medical Billing Coordinator Relationship Specialty Start Date End Date Gita Bowman MD [address] [place] [phone] PCP - General Family Practice 06/18/20 documented as of this encounter
--- OUTSIDE RECORDS SUMMARY | 2024-08-05 12:08 | XMS_ITS | Encounter Summary ---
Author Organization [employer] Address [address] [place] [address] Care Team Providers Care Campus Police Officer Name Role Phone Gita Bowman MD Primary Care Provider Encounter Details Date Type Department Care Team (Late st Contact Info) Description 05/14/2024 External Device Data STL ABSTRACTION Provider, [...] on filedocumented in this encounter Care Teams Campus Police Officer Relationship Specialty Start Date End Date Gita Bowman MD [address] [place] [phone] PCP - General Family Practice 06/18/20 documented as of this encounter
--- OUTSIDE RECORDS SUMMARY | 2024-08-05 12:08 | XMS_ITS | Clinical Summary ---
Author Organization [facility] Address [address] [place] [address] Care Team Providers Care Brake Tester Name Role Phone Unavailable Primary Care Provider Unavailabl e Immunizations Immunization Administration Dates Next Due Covid-19, Mrna, Lnp-s, Pf, 30 Mcg/0.3 Ml Dose (Tiffany faustin) 06/11/2021 Social History Tobacco Use Types Packs/Day Years Used Date Smoking Tobacco: Never Assessed Comments Unknown Sex and Gender Information Value Date Recorded Sex Assigned at Not on file Legal Sex Female 2:35 PM CDT Gender Identity Not on file Sexual Orientation Not on file Plan of Treatment Health Maintenance Due Date Last Done Comments DEXA Bone Density 1955 Hepatitis C Virus (HCV) Screening 1955 Colonoscopy 1998 Colorectal Cancer Screening 1998 Cologuard 12/07/2003 Immunochemical Fecal Occult Blood 12/07/2003 Mammogram 12/07/2003 Zoster Immunization (1 of 2) 12/07/2003 Influenza Immunization (#1) 04/14/202404/16, 05/24/2019, 06/01/2018, Additional history exists SARS-COV-2 Immunization ( season) 2024 06/11/2021, 10/30/2020, 10/09/2020 Respiratory Syncytial Virus (RSV) Immunization (Adult) (1 - 1-dose 75+ series) 2028 DTaP/Tdap/Td Immunization Discontinued 09/19/2020, TdaP Immunization Completed 09/19/2020, 08/11/2006 Pneumococcal Immunization (50+ years) Completed 09/24/2020, 04/12/2019 Hepatitis B Immunization Aged Out No longer eligible based on patient's age to complete this topic Meningococcal Immunization (ACWY) Aged Out No longer eligible based on patient's age to complete this topic Rotavirus Immunization Aged Out No lo nger eligible based on patient's age to complete this topic
--- OUTSIDE RECORDS SUMMARY | 2024-08-05 12:08 | XMS_ITS | Encounter Summary ---
Author Organization [employer] Address [address] [place] [address] Care Team Providers Care Supervisor [employer] Name Role Phone Gita Bowman MD Primary Care Provider Encounter Details Date Type Department Care Team (Late st Contact Info) Description 07/28/2023 External Device Data STL ABSTRACTION Provider, Abstract [...] on filedocumented in this encounter Care Teams Supervisor [employer] Relationship Specialty Start Date End Date Gita Bowman MD [address] [place] [phone] PCP - General Family Practice 06/18/20 documented as of this encounter
--- OUTSIDE RECORDS SUMMARY | 2024-08-05 12:08 | XMS_ITS | Encounter Summary ---
Author Organization [facility] Address [address] [place] [address] Care Team Providers Care Buzzsaw Operator Helper Name Role Phone Unavailable Primary Care Provider Unavailabl e Encounter Details Date Type Department Care Team (Latest Contact Info) Description 06/11/2021 2:45 PM CDT Immunization [place] [facility] Mobile Immunization [address] [place] [address] Need for vaccination (Primary Dx) Social History [...]
--- OUTSIDE RECORDS SUMMARY | 2024-08-05 12:08 | XMS_ITS | Referral Summary ---
Author Organization [facility] [employer] Address [address] [place] [address] Care Team Providers Care Survey And Mapping Technician Name Role Phone Heaven Moran MD Primary Care Provider Un available Matt Antonio MD Unavailable Source Comments [facility] [employer],non-owned Affiliates and Associated Physician Practices is amultiple site organization consisting of ambulatory clinics and hospital sitesin [place], [place], [place]. This disclosure is being madepursuant to the Care Everywhere program and may not contain all information available regarding this patient. Last updated 18.[facility] [employer] Allergies Active Allergy Reactions Criticality Noted Date [...] 68.5 kg (151 lb) 09/20/2019 11:00 AM ROBOT DESIGNER Height 154.9 cm (5' 1 ) 09/20/2019 11:00 AM ROBOT DESIGNER Body Mass Index 28.53 09/20/2019 11:00 AM ROBOT DESIGNER Plan of Treatment Not on file Care Teams Survey And Mapping Technician Relationship Specialty Start Date End Date Heaven Moran MD [address] [place] [address] PCP - General Family Medicine 09/20/19 [place] [address] [facility] [address] [place] [address] Orthopedic Surgery 09/20/19
--- OUTSIDE RECORDS SUMMARY | 2024-08-05 12:08 | XMS_ITS | Patient Health Summary ---
Author Organization [facility] Address [address] [facility] [place] [address] Care Team Providers Care Patrol Guard Name Role Phone Heaven Moran MD Primary Care Provider Un available Matt Antonio MD Unavailable Note from [facility],non-owned Affiliates and Associated Physician Practices is amultiple site organization consisting of ambulatory clinics and hospital sitesin [place], [place], [place]. This disclosure is being madepursuant to the Care Everywhere program and may not contain all information available regarding this patient. Last updated 18.[facility] Allergies * Sesame Oil Medications * Be aware that medications may not be up to date on this document. Alwaysverify current medications with the patient. * estradiol (ESTRACE) 0.1 MG/GM vaginal cream(Started 06/27/2019) APPLY 1 GRAM VAGINALLY TWICE WEEKLY Active Problems Problem Noted Date Diagnosed Date Primary osteoarthritis of right knee 09/20/2019 Immunizations * FLU VACCINE QUAD IIV4 PF ID(Given 05/20/2016) * INFLUENZA VACCINE, QUADR. (FLUZONE; FLULAVAL; FLUARIX; AFLURIA QUADRIVALENT; 6MO+), 0.5 ML (IIV4)(Given 05/24/2017) * iNFLUENZA VACCINE, RECOM-LEI, QUADR. (FLUBLOCK QUADRIVALENT; 18Y+) (RIV4)(Given 06/01/2018) Social History Tobacco Use Types Packs/Day Years [...] 68.5 kg (151 lb) 09/20/2019 11:00 AM LEGAL ASSOCIATE Height 154.9 cm (5' 1 ) 09/20/2019 11:00 AM LEGAL ASSOCIATE Body Mass Index 28.53 09/20/2019 11:00 AM LEGAL ASSOCIATE Procedures * XR KNEE RIGHT 3VW(Performed 09/20/2019) Performed for Right knee pain, unspecified chronicity Results * XR KNEE RIGHT 3VW (09/20/2019 11:04 AM LEGAL ASSOCIATE) Anatomical Region Laterality Modality Lower Extremity Computed Radiogr aphy Narrative 09/20/2019 11:06 AM LEGAL ASSOCIATE Karissa Montelongo, RT(R) ? 09/20/2019 ??3:45 PM See progress notes for results Matt Antonio MD DIAGNOSTIC IMAGING O RDERABLES Care Teams Patrol Guard Relationship Specialty Start Date End Date Heaven Moran MD [address] [place] [address] PCP - General Family Medicine 09/20/19 [place] [address] [place], [place] [id number] Orthopedic Surgery 09/20/19
--- OUTSIDE RECORDS SUMMARY | 2024-08-05 12:09 | XMS_ITS | Encounter Summary ---
Author Organization [facility] Address [address] [place] [address] Care Team Providers Care Central Supply Tech Name Role Phone Unavailable Primary Care Provider Unavailabl e Encounter Details Date Type Department Care Team (Latest Contact Info) Description 08/19/2009 4:05 PM DIRECT SUPPORT PROFESSIONAL CAREGIVER - 08/19/2009 11:59 PM DIRECT SUPPORT PROFESSIONAL CAREGIVER Hospital Encounter [facility] Mammography Services [address] [place] [address] Robby Eldridge Jr., MD NO ADDRESS ON FILE Discharge Disposition: Home or Self Care Social [...] SCREEN BILAT W OR WO CAD Routine 08/19/2009 4:17 PM DIRECT SUPPORT PROFESSIONAL CAREGIVER Other Screening Mammogram documented in this encounter Results * MAMMO DIGITAL SCREEN BILAT (08/19/2009 4:17 PM DIRECT SUPPORT PROFESSIONAL CAREGIVER) Anatomical Region Laterality Modality Breast Bilateral Mammography Narrative 08/21/2009 12:17 PM DIRECT SUPPORT PROFESSIONAL CAREGIVER BILATERAL FULL FIELD DIGITAL SCREENING MAMMOGRAM WITH CAD. 08/19/09 HISTORY: Routine Screening. TECHNIQUE: Full field digital craniocaudal and mediolateral oblique projections of both breasts were obtained. COMPARISON: 07/2008, 06/2007, dating back to 02/2005 BREAST PARENCHYMAL COMPOSITION: Heterogeneously dense, which lowers the sensitivity of mammography. FINDINGS: No new dominant masses, suspicious calcifications, parenchymal asymmetry or areas of architectural distortion are identified in either breast. Since the prior study, there has been no significant interval change. The computer aided detection system was utilized. OVERALL ASSESSMENT: ??BI-RADS category 1: Negative. RECOMMENDATION: Annual mammography is recommended. This study was reviewed with Sherita Santos MD. Dictated by: ??Elsy Greenwood MD Procedure Note Sherita Santos - 08/22/2009 BILATERAL FULL FIELD DIGITAL SCREENING MAMMOGRAM WITH CAD. 08/19/09 HISTORY: Routine Screening. TECHNIQUE: Full field digital craniocaudal and mediolateral obliqueprojections of both breasts were obtained. COMPARISON: 07/2008, 06/2007, dating back to 02/2005 BREAST PARENCHYMAL COMPOSITION: Heterogeneously dense, which lowers thesensitivity of mammography. FINDINGS: No new dominant masses, suspicious calcifications, parenchymalasymmetry or areas of architectural distortion are identified in eitherbreast. Since the prior study, there has been no significant intervalchange. The computer aided detection system was utilized. OVERALL ASSESSMENT: BI-RADS category 1: Negative. RECOMMENDATION: Annual mammography is recommended. This study was reviewed with Sherita Santos MD. Dictated by: Elsy Greenwood MD Robby Eldridge Jr., MD MAMMO ORDERABLES documented in this encounter Visit Diagnoses Diagnosis Other screening mammogram documented in this encounter
--- OUTSIDE RECORDS SUMMARY | 2024-08-05 12:09 | XMS_ITS | Encounter Summary ---
Author Organization [facility] Address [address] [place] [address] Care Team Providers Care Stud Master/Mistress Name Role Phone [facility], External Provider Primary Care Provider U navailable Reason for Referral * Outpatient Services (Routine) - Closed Specialty Diagnoses / Procedures Referred By Leonarda shultz Referred To Contact Radiology Diagnoses Other screening mammogram Procedures MAMMO DIGITAL SCREEN Robby Cartagena Jr., MD NO ADDRESS ON FILE Referral ID Status Reason Start Date Expiration Date V isits Requested Visits Authorized [id number] Closed [facility] 03/19/2015 04/18/2016 1 1 Reason for Visit * Outpatient Services (Routine) - Closed Specialty Diagnoses / Procedures Referred By Contac t Referred To Contact Radiology Diagnoses Other screening mammogram Procedures MAMMO DIGITAL SCREEN Robby Cartagena Jr., MD NO ADDRESS ON FILE Referral ID Status Reason Start Date Expiration Date V isits Requested Visits Authorized [id number] Closed [facility] 03/19/2015 04/18/2016 1 1 Encounter Details Date Type Department Care Team (Latest Contact Info) Description 03/20/2015 1:19 PM CDT - 03/20/2015 11:59 PM CDT Hospital Encounter [address] [address] Robby Eldridge Jr., MD NO ADDRESS ON [...] SCREEN BILAT W OR WO CAD Routine 03/20/2015 1:34 PM CDT Other screening mammogram documented in this encounter Results * MAMMO DIGITAL SCREEN BILAT (03/20/2015 1:34 PM CDT) Anatomical Region Laterality Modality Breast Bilateral Mammography Narrative 03/23/2015 7:49 AM CDT Bilateral digital screening mammogram with computer assisted diagnosis History: ??Annual screening exam. Findings: ??A bilateral screening mammogram was performed. Comparison is made to : 02/07/2014, 02/05/2013, 01/10/2012 ??There are scattered fibroglandular densities. ??No new masses, ??suspicious calcifications, or areas of asymmetry or distortion are identified. ??CAD was utilized. Impression: ??Negative screening mammogram. Recommendation: ??Routine annual follow-up Overall Assessment: ??Birads Category 1: ??Negative Robby Eldridge Jr., MD MAMMO ORDERABLES documented in this encounter Visit Diagnoses Diagnosis Other screening mammogram documented in this encounter Care Teams Stud Master/Mistress Relationship Specialty Start Date End Date [facility], External Provider [address] [place] [address] PCP - General Pain Management 01/30/14 06/17/20 documented as of this encounter
--- OUTSIDE RECORDS SUMMARY | 2024-08-05 12:09 | XMS_ITS | Encounter Summary ---
Author Organization [facility] Address [address] [place] [address] Care Team Providers Care Casino Floor Person Name Role Phone [facility], External Provider Primary Care Provider U navailable Reason for Referral * Outpatient Services (Routine) - Closed Specialty Diagnoses / Procedures Referred By Leonarda shultz Referred To Contact Radiology Diagnoses Other screening mammogram Procedures MAMMO DIGITAL SCREEN Robby Cartagena Jr., MD NO ADDRESS ON FILE Referral ID Status Reason Start Date Expiration Date V isits Requested Visits Authorized [id number] Closed [facility] 01/30/2014 03/02/2015 1 1 Reason for Visit * Outpatient Services (Routine) - Closed Specialty Diagnoses / Procedures Referred By Contac t Referred To Contact Radiology Diagnoses Other screening mammogram Procedures MAMMO DIGITAL SCREEN Robby Cartagena Jr., MD NO ADDRESS ON FILE Referral ID Status Reason Start Date Expiration Date V isits Requested Visits Authorized [id number] Closed [facility] 01/30/2014 03/02/2015 1 1 Encounter Details Date Type Department Care Team (Latest Contact Info) Description 02/07/2014 10:19 AM CDT - 02/07/2014 11:59 PM CDT Hospital Encounter [address] [phone] Robby Eldridge Jr., MD NO ADDRESS ON [...] SCREEN BILAT W OR WO CAD Routine 02/07/2014 10:35 AM CDT Other screening mammogram documented in this encounter Results * MAMMO DIGITAL SCREEN BILAT (02/07/2014 10:35 AM CDT) Anatomical Region Laterality Modality Breast Bilateral Mammography 02/07/2014 10:3 4 AM CDT Narrative 02/11/2014 9:09 AM CDT BILATERAL FULL-FIELD DIGITAL SCREENING MAMMOGRAM WITH CAD ??02/07/14 ?? HISTORY: ?? Annual screening COMPARISON: Previous studies date back to June 2007 BREAST COMPOSITION: Heterogeneously dense, which lowers the sensitivity of mammography. FINDINGS: There is question of focal asymmetry with subtle distortion in the central to slightly medial right breast in the craniocaudal projection. Calcifications are seen posterior to this area. It is likely in the upper breast on MLO view. Additional imaging is recommended for further evaluation. No dominant mass or distortion is present on the left. CAD was utilized. Overall assessment: BI-RADS category 0: Needs additional imaging evaluation Recommendation: Additional diagnostic views and possible ultrasound of the right breast. Dictated from [facility] Procedure Note Be Trotter MD - 02/11/2014 BILATERAL FULL-FIELD DIGITAL SCREENING MAMMOGRAM WITH CAD 02/07/14 HISTORY: Annual screening COMPARISON: Previous studies date back to June 2007 BREAST COMPOSITION: Heterogeneously dense, which lowers the sensitivity of mammography. FINDINGS: There is question of focal asymmetry with subtle distortion in the central to slightly medial right breast in the craniocaudal projection. Calcifications are seen posterior to this area. It is likely in the upper breast on MLO view. Additional imaging is recommended for further evaluation. No dominant mass or distortion is present on the left. CAD was utilized. Overall assessment: BI-RADS category 0: Needs additional imaging evaluation Recommendation: Additional diagnostic views and possible ultrasound of the right breast. Dictated from [facility] Robby Eldridge Jr., MD MAMMO ORDERABLES documented in this encounter Visit Diagnoses Diagnosis Other screening mammogram documented in this encounter Care Teams Casino Floor Person Relationship Specialty Start Date End Date [facility], External Provider [address] [place] [address] PCP - General Pain Management 01/30/14 06/17/20 documented as of this encounter
--- OUTSIDE RECORDS SUMMARY | 2024-08-05 12:09 | XMS_ITS | Encounter Summary ---
Author Organization [employer] [facility] Address [address] [place] [address] Care Team Providers Care Watch Electrician Name Role Phone Gita Bowman MD Primary Care Provider Encounter Details Date Type Department Care Team (Latest Contact Info) Description 06/02/2006 Outpatient Historical [facility] Eldridge Jr., Robby Koenig MD NO ADDRESS ON FILE Other Screening Mammogram (Primary Dx) Social History Tobacco Use Types Packs/Day Years Used Date Smoking Tobacco: Never Assessed Sex and Gender Information Value Date Recorded Sex Assigned at Not on file Gender Identity Not on file Sexual Orientation Not on file documented as of this encounter Plan of Treatment Not on file documented as of this encounter Visit Diagnoses Diagnosis Other screening mammogram- Primary documented in this encounter Care Teams Watch Electrician Relationship Specialty Start Date End Date Gita Bowman MD [address] [place] [id number] PCP - General Family Practice 06/18/20 documented as of this encounter
--- OUTSIDE RECORDS SUMMARY | 2024-08-05 12:09 | XMS_ITS | Encounter Summary ---
Author Organization [employer] Address [address] [place] [address] Care Team Providers Care Svp Of Digital Name Role Phone Deonte Byrne MD Primary Care Provider Unavailab le Reason for Referral * Outpatient Services (Routine) - Closed Specialty Diagnoses / Procedures Referred By Leonarda shultz Referred To Contact Radiology Diagnoses Other screening mammogram Procedures MAMMO DIGITAL SCREEN Robby Cartagena Jr., MD NO ADDRESS ON FILE Referral ID Status Reason Start Date Expiration Date Visits Re quested Visits Authorized [id number] Closed 12/31/2012 01/31/2014 1 1 Reason for Visit * Outpatient Services (Routine) - Closed Specialty Diagnoses / Procedures Referred By Leonarda shultz Referred To Contact Radiology Diagnoses Other screening mammogram Procedures MAMMO DIGITAL SCREEN Robby Cartagena Jr., MD NO ADDRESS ON FILE Referral ID Status Reason Start Date Expiration Date Visits Re quested Visits Authorized [id number] Closed 12/31/2012 01/31/2014 1 1 Encounter Details Date Type Department Care Team (Latest Contact Info) Description 02/05/2013 9:30 AM CDT - 02/05/2013 11:59 PM CDT Hospital Encounter [facility] Mammography Services [address] [place] [address] Robby Eldridge Jr., MD NO [...] SCREEN BILAT W OR WO CAD Routine 02/05/2013 9:54 AM CDT Other screening mammogram documented in this encounter Results * MAMMO DIGITAL SCREEN BILAT (02/05/2013 9:54 AM CDT) Anatomical Region Laterality Modality Breast Bilateral Mammography 02/05/2013 9:43 AM CDT Narrative 02/06/2013 12:40 PM CDT BILATERAL DIGITAL SCREENING MAMMOGRAM WITH CAD, ??Feb 05, 2013 09:43:07 AM INDICATION: Routine screening. TECHNIQUE: Standard images were obtained of both breasts on a digital system. CAD was utilized. ?? COMPARISON: Made to multiple prior studies dating back to May 2006. BREAST COMPOSITION: Heterogeneously dense which limits the sensitivity of mammography. FINDINGS: No dominant masses, suspicious calcifications, parenchymal asymmetry or areas of architectural distortion are identified in either breast. OVERALL ASSESSMENT: ??BI-RADS Category 1: Negative. RECOMMENDATIONS: Recommend continued annual mammography. Dictated from [facility] Procedure Note Ray Vanessa MD - 02/06/2013 BILATERAL DIGITAL SCREENING MAMMOGRAM WITH CAD, Feb 05, 2013 09:43:07 AM INDICATION: Routine screening. TECHNIQUE: Standard images were obtained of both breasts on a digital system. CAD was utilized. COMPARISON: Made to multiple prior studies dating back to May 2006. BREAST COMPOSITION: Heterogeneously dense which limits the sensitivity of mammography. FINDINGS: No dominant masses, suspicious calcifications, parenchymal asymmetry or areas of architectural distortion are identified in either breast. OVERALL ASSESSMENT: BI-RADS Category 1: Negative. RECOMMENDATIONS: Recommend continued annual mammography. Dictated from [facility] Robby Eldridge Jr., MD MAMMO ORDERABLES documented in this encounter Visit Diagnoses Diagnosis Other screening mammogram documented in this encounter Care Teams Svp Of Digital Relationship Specialty Start Date End Date Deonte Byrne MD PCP - General Family Practice 08/12/10 01/29/14 documented as of this encounter
--- OUTSIDE RECORDS SUMMARY | 2024-08-05 12:09 | XMS_ITS | Encounter Summary ---
Author Organization [employer] Address [address] [place] [address] Care Team Providers Care Corporate Legal Intern Name Role Phone Gita Bowman MD Primary Care Provider Encounter Details Date Type Department Care Team (Latest Contact Info) Description 07/02/2007 Outpatient Historical [facility] Robby Eldridge Jr., MD NO ADDRESS ON FILE Other Screening [...] Primary documented in this encounter Care Teams Corporate Legal Intern Relationship Specialty Start Date End Date Gita Bowman MD [address] [place] [id number] PCP - General Family Practice 06/18/20 documented as of this encounter
--- OUTSIDE RECORDS SUMMARY | 2024-08-05 12:09 | XMS_ITS | Encounter Summary ---
Author Organization [email or web address] Address [address] [place] [address] Care Team Providers Care Customer Service Specialist Name Role Phone Deonte Byrne MD Primary Care Provider Unavailab le Reason for Referral * Outpatient Services (Routine) - Closed Specialty Diagnoses / Procedures Referred By Leonarda shultz Referred To Contact Radiology Diagnoses Other screening mammogram Procedures MAMMO DIGITAL SCREEN Robby Cartagena Jr., MD NO ADDRESS ON FILE Referral ID Status Reason Start Date Expiration Date Visits Re quested Visits Authorized [id number] Closed 11/18/2011 11/17/2012 1 1 Reason for Visit * Outpatient Services (Routine) - Closed Specialty Diagnoses / Procedures Referred By Leonarda shultz Referred To Contact Radiology Diagnoses Other screening mammogram Procedures MAMMO DIGITAL SCREEN Robby Cartagena Jr., MD NO ADDRESS ON FILE Referral ID Status Reason Start Date Expiration Date Visits Re quested Visits Authorized [id number] Closed 11/18/2011 11/17/2012 1 1 Encounter Details Date Type Department Care Team (Latest Contact Info) Description 01/10/2012 3:33 PM CDT - 01/10/2012 11:59 PM CDT Hospital Encounter [facility] Mammography Services [address] [place] [address] Robby Eldridge Jr., MD NO [...] SCREEN BILAT W OR WO CAD Routine 01/10/2012 4:01 PM CDT Other screening mammogram documented in this encounter Results * MAMMO DIGITAL SCREEN BILAT (01/10/2012 4:01 PM CDT) Anatomical Region Laterality Modality Breast Bilateral Mammography 01/10/2012 3:49 PM CDT Narrative 01/12/2012 9:29 AM CDT DIGITAL SCREENING MAMMOGRAM WITH COMPUTER-ASSISTED DIAGNOSIS 01/10/12 HISTORY: ??Annual screening study FINDINGS: The breasts were imaged with digital mammographic technique. The breast tissue is heterogeneously dense bilaterally. This lowers the sensitivity of mammography. No significant mass, malignant calcification or architectural distortion is noted. The CAD system does not highlight any suspicious areas. SUMMARY: No mammographic evidence of malignancy. There has been no significant change from prior study of 08/24/2010 and 08/19/2009. RECOMMENDATIONS: Bilateral yearly screening mammogram is recommended. BI-RADS 1 - Negative Procedure Note Gabi Durán MD - 01/12/2012 DIGITAL SCREENING MAMMOGRAM WITH COMPUTER-ASSISTED DIAGNOSIS 01/10/12 HISTORY: Annual screening study FINDINGS: The breasts were imaged with digital mammographic technique. The breast tissue is heterogeneously dense bilaterally. This lowers the sensitivity of mammography. No significant mass, malignant calcification or architectural distortion is noted. The CAD system does not highlight any suspicious areas. SUMMARY: No mammographic evidence of malignancy. There has been no significant change from prior study of 08/24/2010 and 08/19/2009. RECOMMENDATIONS: Bilateral yearly screening mammogram is recommended. BI-RADS 1 - Negative Robby Eldridge Jr., MD MAMMO ORDERABLES documented in this encounter Visit Diagnoses Diagnosis Other screening mammogram documented in this encounter Care Teams Customer Service Specialist Relationship Specialty Start Date End Date Deonte Byrne MD PCP - General Family Practice 08/12/10 01/29/14 documented as of this encounter
--- OUTSIDE RECORDS SUMMARY | 2024-08-05 12:09 | XMS_ITS | Continuity of Care Document ---
Author Organization [facility] Address [address] [place] [address] [place] [address] Phone Care Team Providers Care Java Security Architect Name Role Phone Kuldeep Nicole Unavailable Unavailable Procedures Procedure Date Visual Field Examination(s) Office/outpatient Visit, Est Fundus Photography W/ Report Optic Nerve Topography Optic Nerve Topography Visual Field Examination(s) Office Consultation Corneal Pachymetry Advance Directives Directive Yes / No Effective Date File Name No Information Encounters Encounter Description Practice Location Reason(s) For Visit Diagnoses Date Provider Providers Copied on Encounter [facility], [id number] [place], [place] [address], [place], [place], [id number], tel:[phone] SEC [facility] No Information 0 Corey Light. [facility] , [facility] [address], [place], [address], [place]. tel:[phone] Referring Provider: Pranay Gomez [facility] R[address] Chamber[address], [place], [address]. tel:[phone] Office/outpati ent Visit, Est [facility], [address] [place] [address] [address], [place], [place], [address], tel:[phone] [facility] No Information 0201 0 Angel Jassi. [facility] Randa Machado [facility], [place], [address], [place]. tel:[phone] Referring Provider: Jassi davies, [facility]1 [address] [address], [place], [place], [facility]. tel:[phone] [facility], [address] [place] [address] [address], [place], [place], [address], tel:[phone] [facility] No Information 3200 9 Krishnasamy Jassi. [facility] Corporate [facility] [address], [place], [facility], [place]. tel:[phone] Referring Provider: Jassi davies, [address] [place], [place] [address]ate [place] [address], [place], [place], [facility]. tel:[phone] [facility], [address] [facility] [place] [address], [place], [place], [id number], [place] tel:[phone] [facility] No Information 200 9 Krishnasamy Jassi. [address] [place], [place] [address], [facility], [place]. tel:[phone] Referring Provider: Jassi davies, [address] [place], [place] [address], [facility]. tel:[phone] Office Consultation [facility], [address] [place], [place] [address], [place], [place], [address], tel:[phone] [facility] No Information 2200 9 Krishnasamy Jassi. [facility] [address], [facility], [place]. tel:[phone] Referring Provider: Leonard Edge OD, [address], [address]. tel:[phone] Family History Family Member Type Diagnosis Age At Onset No Information Payers Payer name Insurance type Covered green party ID Authoriza tion(s) No Information Social [...]
--- OUTSIDE RECORDS SUMMARY | 2024-08-05 12:09 | XMS_ITS | Continuity of Care Document ---
Author Organization [facility] Address [address] [place] [address] Phone Care Team Providers Care Catalyst Operator Chief Name Role Phone Bridgette Luo DPT Unavailable [...] Diagnoses Date Provider Providers Copied on Encounter [facility], [address], [place], [place], [id number], [place] tel:[phone] [facility] No Information Apr-0 1-201 6 Whittier Bridgette. [address] [place] [address], [address], [place], [place], [facility], . [phone] Referring Provider: Davin Evans, [address] [facility] [address], [place], [address]. tel:[phone], [place], [id number], tel:[phone] [facility] No Information Mar-3 0-201 6 Valerio Bridgette. [address] [place] [address], [address], [place], [place], [facility], [place]. tel:[phone] Referring Provider: Davin Evans [address] [facility] [address], [place], [place], [facility]. tel:[phone], [id number], tel:[phone] [facility] No Information Mar-2 9-201 6 Whittier Bridgette. [address] [place] [address], [address], [place], [facility], [place]. tel:[phone] Referring Provider: Davin Evans [address] [facility] [address], [place], [address]. tel:[phone], [place], [address], tel:[phone] [facility] No Information Mar-2 5-201 6 Valerio Bridgette. [address] [place] [address], [address], [place], [place], [facility], [place]. tel:[phone] Referring Provider: Davin Evans, [address] [facility] [address], [place], [address]. tel:[phone], [id number], tel:[phone] [facility] No Information Mar-2 3-201 6 Whittier Bridgette. [address] [place] [address], [address], [place], [facility], . tel:[phone] Referring Provider: Davin Evans [address] [facility] [address], [place], [address]. tel:[phone] [address] [address], [place], [place], [address], tel:[phone] [facility] No Information Oct-2 1-201 6 Whittier Bridgette. [address] [place] [address], [address], [place], [place], [facility], . tel:[phone] Referring Provider: Davin Evans, [address] [facility] [address], [place], [address]. tel:[phone] [address], [place], [place], [id number], [place] tel:[phone] [facility] No Information Oct- 8- 6 Valerio Bridgette. [address] [place] [address], [address], [place], [facility], . tel:[phone] Referring Provider: Davin Eavns, [address] [facility] [address], [place], [address]. tel:[phone], [id number], tel:[phone] [facility] No Information Oct- 6-201 6 Whittier Bridgette. [address] [place] [address], [address], [place], [facility], . tel:[phone] Referring Provider: Davin Evans [address] [facility] [address], [place], [address]. tel:[phone], [id number], tel:[phone] [facility] Pain in left kneeMuscle weakness (generalized)Bi lateral primary osteoarthritis of knee Oct- 4-201 6 Whittier Bridgette. [address] [place] [address], [address], [place], [facility], . tel:[phone] Referring Provider: Davin Evans [address] [facility] [address], [place], [address]. tel:[phone] Family History Family Member Type Diagnosis Age [...]
--- OUTSIDE RECORDS SUMMARY | 2024-08-05 12:09 | XMS_ITS | Encounter Summary ---
Author Organization [facility] Address [address] [place] [address] Care Team Providers Care Drip Box Tender Name Role Phone [facility], External Provider Primary Care Provider U navailable Reason for Referral * Radiology Services (Routine) - Closed Specialty Diagnoses / Procedures Referred By Contac t Referred To Contact Diagnoses Breast cancer screening by mammogram Procedures MAMMO SCRN BILAT 3D LUIS W OR WO CAD CHG SCREENING MAMMOGRAPHY BI 2-VIEW BREAST INC CAD CHG SCREENING DIGITAL BREAST TOMOSYNTHESIS Robby Kaye Jr., MD NO ADDRESS ON FILE Referral ID Status Reason Start Date Expiration Date Visits Re quested Visits Authorized [id number] Closed 06/21/2019 07/21/2020 1 1 TAPPER Reason for Visit * Radiology Services (Routine) - Closed Specialty Diagnoses / Procedures Referred By Contac t Referred To Contact Diagnoses Breast cancer screening by mammogram Procedures MAMMO SCRN BILAT 3D LUIS W OR WO CAD CHG SCREENING MAMMOGRAPHY BI 2-VIEW BREAST INC CAD CHG SCREENING DIGITAL BREAST TOMOSYNTHESIS Robby Kaye Jr., MD NO ADDRESS ON FILE Referral ID Status Reason Start Date Expiration Date Visits Re quested Visits Authorized [id number] Closed 06/21/2019 07/21/2020 1 1 Encounter Details Date Type Department Care Team (Latest Contact Info) Description 06/24/2019 2:00 PM HAND TAPPER - 06/24/2019 11:59 PM HAND TAPPER Hospital Encounter [facility] [address] [place] [id number] Robby Eldridge Jr., MD NO ADDRESS ON [...] SCREEN BILAT W OR WO CAD Routine 06/24/2019 3:07 PM HAND TAPPER Breast cancer screening by mammogram documented in this encounter Results * MAMMO SCRN BILAT 3D LUIS W OR WO CAD (06/24/2019 3:07 PM HAND TAPPER) Anatomical Region Laterality Modality Breast Bilateral Mammography 06/24/2019 3:08 PM HAND TAPPER Impressions 06/25/2019 7:42 AM HAND TAPPER IMPRESSION: Negative bilateral screening mammogram. Recommend routine followup. OVERALL FINAL ASSESSMENT: ??BI-RADS CATEGORY 1: Negative DICTATION LOCATION: [facility] 06/25/2019 7:42 AM HAND TAPPER BILATERAL SCREENING DIGITAL MAMMOGRAMS WITH COMPUTER ASSISTED DIAGNOSIS WITH TOMOGRAPHY DATE: 06/24/2019 3:07 PM HISTORY: Annual screening study. COMPARISON: 05/31/2018 and 02/05/2013 TECHNIQUE: A bilateral screening mammogram was performed. Low-dose full-field digital breast tomosynthesis examination was performed with 2D and 3D acquisitions. Examination is read in conjunction with computer aided detection. BREAST COMPOSITION: Heterogeneously dense, which lowers the sensitivity of mammography. FINDINGS: No new masses, suspicious calcifications, or areas of asymmetry or distortion are identified. The images were reviewed using the CAD system. Procedure Note Jacquie Marie MD - 06/25/2019 BILATERAL SCREENING DIGITAL MAMMOGRAMS WITH COMPUTER ASSISTED DIAGNOSIS WITH TOMOGRAPHY DATE: 06/24/2019 3:07 PM HISTORY: Annual screening study. COMPARISON: 05/31/2018 and 02/05/2013 TECHNIQUE: A bilateral screening mammogram was performed. Low-dose full-field digital breast tomosynthesis examination was performed with 2D and 3D acquisitions. Examination is read in conjunction with computer aided detection. BREAST COMPOSITION: Heterogeneously dense, which lowers the sensitivity of mammography. FINDINGS: No new masses, suspicious calcifications, or areas of asymmetry or distortion are identified. The images were reviewed using the CAD system. IMPRESSION: Negative bilateral screening mammogram. Recommend routine followup. OVERALL FINAL ASSESSMENT: BI-RADS CATEGORY 1: Negative DICTATION LOCATION: [facility] Robby Eldridge Jr., MD MAMMO ORDERABLES documented in this encounter Visit Diagnoses Diagnosis Breast cancer screening by mammogram documented in this encounter Care Teams Drip Box Tender Relationship Specialty Start Date End Date [facility], External Provider [address] [place] [address] PCP - General Pain Management 01/30/14 06/17/20 documented as of this encounter
--- OUTSIDE RECORDS SUMMARY | 2024-08-05 12:09 | XMS_ITS | Encounter Summary ---
Author Organization [facility] Address [address] [place] [address] Care Team Providers Care Pairer Odds Name Role Phone [facility], External Provider Primary Care Provider U navailable Reason for Referral * Outpatient Services (Routine) - Closed Specialty Diagnoses / Procedures Referred By Leonarda shultz Referred To Contact Diagnoses Visit for screening mammogram Procedures MAMMO SCREEN BILAT W OR WO Robby Perez Jr., MD NO ADDRESS ON FILE Referral ID Status Reason Start Date Expiration Date V isits Requested Visits Authorized [id number] Closed [facility] 05/15/2017 06/15/2018 1 1 Reason for Visit * Outpatient Services (Routine) - Closed Specialty Diagnoses / Procedures Referred By Contcarter shultz Referred To Contact Diagnoses Visit for screening mammogram Procedures MAMMO SCREEN BILAT W OR WO Robby Perez Jr., MD NO ADDRESS ON FILE Referral ID Status Reason Start Date Expiration Date V isits Requested Visits Authorized [id number] Closed [facility] 05/15/2017 06/15/2018 1 1 Encounter Details Date Type Department Care Team (Latest Contact Info) Description 05/18/2017 9:52 AM CDT - 05/18/2017 11:59 PM CDT Hospital Encounter [address] [address] Robby Eldridge Jr., MD NO [...] SCREEN BILAT W OR WO CAD Routine 05/18/2017 10:09 AM CDT Visit for screening mammogram documented in this encounter Results * MAMMO SCREEN BILAT W OR WO CAD (05/18/2017 10:09 AM CDT) Anatomical Region Laterality Modality Breast Bilateral Mammography 05/18/2017 10:0 9 AM CDT Impressions 05/22/2017 7:43 AM CDT IMPRESSION: Normal screening mammogram. BI-RADS Classification: 1 Negative. Recommend annual screening mammography. Reading Station: [facility] Narrative 05/22/2017 7:43 AM CDT EXAM: BILATERAL DIGITAL SCREENING MAMMOGRAM WITH CAD DATE: 05/18/2017 10:09 AM INDICATION: Screening. COMPARISON STUDIES: 03-21-2016, 03-20-2015. PARENCHYMAL COMPOSITION: Heterogeneously dense parenchyma which decreases the sensitivity of mammography. FINDINGS: There is no concerning mass, asymmetry, malignant microcalcification or area of architectural distortion in either breast. There is no change when compared to previous mammograms. Computer aided diagnosis was utilized. Procedure Note Maury Rice MD - 05/22/2017 EXAM: BILATERAL DIGITAL SCREENING MAMMOGRAM WITH CAD DATE: 05/18/2017 10:09 AM INDICATION: Screening. COMPARISON STUDIES: 03-21-2016, 03-20-2015. PARENCHYMAL COMPOSITION: Heterogeneously dense parenchyma which decreases the sensitivity of mammography. FINDINGS: There is no concerning mass, asymmetry, malignant microcalcification or area of architectural distortion in either breast. There is no change when compared to previous mammograms. Computer aided diagnosis was utilized. IMPRESSION: Normal screening mammogram. BI-RADS Classification: 1 Negative. Recommend annual screening mammography. Reading Station: [facility] Robby Eldridge Jr., MD MAMMO ORDERABLES documented in this encounter Visit Diagnoses Diagnosis Visit for screening mammogram Other screening mammogram documented in this encounter Care Teams Pairer Odds Relationship Specialty Start Date End Date [facility], External Provider [address] [place] [address] PCP - General Pain Management 01/30/14 06/17/20 documented as of this encounter
--- OUTSIDE RECORDS SUMMARY | 2024-08-05 12:09 | XMS_ITS | Encounter Summary ---
Author Organization [employer] Address [address] [place] [address] Care Team Providers Care Shellfish Meat Separator Operator Name Role Phone Gita Bowman MD Primary Care Provider Encounter Details Date Type Department Care Team (Latest Contact Info) Description 02/10/2004 Outpatient Historical HIS [facility] ADRIEL Eldridge Jr., Robby Koenig MD NO ADDRESS ON FILE SCREENING MAMM-MAILG NEOPL-OTHER (Primary Dx) Social History Tobacco Use Types [...] Primary documented in this encounter Care Teams Shellfish Meat Separator Operator Relationship Specialty Start Date End Date Gita Bowman MD [address] [place] [id number] PCP - General Family Practice 06/18/20 documented as of this encounter
--- OUTSIDE RECORDS SUMMARY | 2024-08-05 12:09 | XMS_ITS | Encounter Summary ---
Author Organization [facility] Address [address] [place] [address] Care Team Providers Care Registered Health Nurse Name Role Phone Gita Bowman MD Primary Care Provider Encounter Details Date Type Department Care Team (Latest Contact Info) Description 07/30/2008 Outpatient Historical HIS [facility] Robby Mejía Jr., MD NO ADDRESS ON FILE Other Screening Mammogram Social History Tobacco Use Types Packs/Day Years [...] SCREEN BILAT W OR WO CAD Routine 07/30/2008 3:23 PM FLIGHT OPERATIONS ENGINEER documented in this encounter Results * MAMMO DIGITAL SCREEN BILAT (07/30/2008 3:23 PM FLIGHT OPERATIONS ENGINEER) Anatomical Region Laterality Modality Breast Bilateral Other 07/30/2008 3:23 PM FLIGHT OPERATIONS ENGINEER Narrative 08/01/2008 12:49 PM FLIGHT OPERATIONS ENGINEER ? [facility] ? [address] ?[place], [place] [address] ?Admit Date: 07/30/2008 ? RENETTA BROKC ?Sex: F ?Admit Prov: ROBBY MEJÍA ? Date: 1955 ?Primary Care Prov: ? CMRN: [id number] ?Room: TFLB-A ? SSN: [id number] ? IMAGING SERVICES ?Ordering Prov: ROBBY MEJÍA ?Accession Number: [id number] ?Interpretation ? BILATERAL SCREENING DIGITAL MAMMOGRAMS WITH COMPUTER ASSISTED DIAGNOSIS ? 07/30/2008 ? History: Annual screening study. ? Comparison is made to 03/07/05. The images were reviewed using the CAD ? system. ?? The breast parenchyma is heterogeneously dense. No new dominant ? masses, suspicious calcifications or areas of parenchymal asymmetry or ? distortion are identified. ? Impression: ? Stable screening mammogram ? Recommend routine followup ? Overall assessment: BIRADS category 1 - Negative ? Assessment BIRADS: ??1-Negative ? Recommendation: ??Normal interval follow-up ? Dictated by: ??JACQUIE MARIE ? Electronically signed by: ??JACQUIE MARIE ??08/01/2008 12:47 ? Transcribed: ??07/31/2008 16:53 ?[facility] Procedure Note Jacquie Marie - 08/01/2008 [facility] [address] [place], [place] [address] Admit Date: 07/30/2008 RENETTA BROCK Sex: F Admit Prov: ROBBY MEJÍA Date: 1955 Primary Care Prov: CMRN: [id number] Room: [facility] SSN: [id number] IMAGING SERVICES Ordering Prov: ROBBY MEJÍA Interpretation BILATERAL SCREENING DIGITAL MAMMOGRAMS WITH COMPUTER ASSISTEDDIAGNOSIS 07/30/2008 History: Annual screening study. Comparison is made to 03/07/05. The images were reviewed using the[employer] system. The breast parenchyma is heterogeneously dense. No newdominant masses, suspicious calcifications or areas of parenchymal asymmetryor distortion are identified. Impression: Stable screening mammogram Recommend routine followup Overall assessment: BIRADS category 1 - Negative Assessment BIRADS: 1-Negative Recommendation: Normal interval follow-up Dictated by: JACQUIE MARIE Electronically signed by: JACQUIE MARIE 08/01/2008 12:47 Transcribed: 07/31/2008 16:53 [facility] Robby Mejía Jr., MD MAMMO ORDERABLES documented in this encounter Visit Diagnoses Diagnosis Other screening mammogram documented in this encounter Care Teams Registered Health Nurse Relationship Specialty Start Date End Date Gita Bowman MD [address] [place] [address] PCP - General Family Practice 06/18/20 documented as of this encounter
--- OUTSIDE RECORDS SUMMARY | 2024-08-05 12:09 | XMS_ITS | Encounter Summary ---
Author Organization [facility] Address [address] [place] [address] Attn: Epic Prelude ADT [place]NANDEZ [address] Care Team Providers Care Mineralogy Professor Name Role Phone Unavailable Primary Care Provider Unavailabl e Encounter Details Date Type Department Care Team (Latest Contact Info) Description 07/02/2007 Orders Only Conversion, History Social History Tobacco Use Types Packs/Day Years Used Date Smoking Tobacco: Never Assessed Sex and Gender Information Value Date Recorded Sex Assigned at Not on file Gender Identity Not on file Sexual Orientation Not on file documented as of this encounter Progress Notes * Conversion, History - 10/12/2007 8:17 AM SAND CONDITIONER CONDITIONER documented in this encounter Plan of Treatment Not on file documented as of this encounter Visit Diagnoses Not on filedocumented in this encounter
--- OUTSIDE RECORDS SUMMARY | 2024-08-05 12:09 | XMS_ITS | Encounter Summary ---
Author Organization [employer] Address [address] [place] [address] Care Team Providers Care Surgical Specialist Name Role Phone Gita Bowman MD Primary Care Provider Encounter Details Date Type Department Care Team (Latest Contact Info) Description 03/07/2005 Outpatient Historical HIS [facility] ADRIEL Eldridge Jr., Robby Koenig MD [...] Primary documented in this encounter Care Teams Surgical Specialist Relationship Specialty Start Date End Date Gita Bowman MD [address] [place] [phone] PCP - General Family Practice 06/18/20 documented as of this encounter
--- OUTSIDE RECORDS SUMMARY | 2024-08-05 12:09 | XMS_ITS | Encounter Summary ---
Author Organization [facility] Address [address] [place] [address] Care Team Providers Care Information Technology Security Analyst Name Role Phone [facility], External Provider Primary Care Provider U navailable Reason for Referral * Outpatient Services (Routine) - Closed Specialty Diagnoses / Procedures Referred By Leonarda shultz Referred To Contact Diagnoses Abnormal mammogram Procedures MAMMO DIGITAL DIAG UNI Robby Aguilar Jr., MD NO ADDRESS ON FILE Referral ID Status Reason Start Date Expiration Date Visits Re quested Visits Authorized [id number] Closed 02/12/2014 03/15/2015 1 1 Reason for Visit * Outpatient Services (Routine) - Closed Specialty Diagnoses / Procedures Referred By Leonarda shultz Referred To Contact Diagnoses Abnormal mammogram Procedures MAMMO DIGITAL DIAG UNI Robby Aguilar Jr., MD NO ADDRESS ON FILE Referral ID Status Reason Start Date Expiration Date Visits Re quested Visits Authorized [id number] Closed 02/12/2014 03/15/2015 1 1 Encounter Details Date Type Department Care Team (Latest Contact Info) Description 02/18/2014 9:59 AM CDT - 02/18/2014 11:59 PM CDT Hospital Encounter [facility] A [address] [place] [phone] Robby Eldridge Jr., MD NO ADDRESS ON [...] Name Priority Date/Time Associated Diagnosis Comments MAMMO DIAGNOSTIC UNI RIGHT W OR WO CAD Routine 02/18/2014 10:14 AM CDT Abnormal mammogram documented in this encounter Results * MAMMO DIGITAL DIAG UNI RIGHT (02/18/2014 10:14 AM CDT) Anatomical Region Laterality Modality Breast Right Mammography 02/18/2014 10:1 3 AM CDT Impressions 02/19/2014 10:13 AM CDT Impression: No evidence of malignancy. RECOMMENDATIONS: Bilateral annual screening mammogram. BI-RADS category one. Negative. Dictated from [facility] Narrative 02/19/2014 10:13 AM CDT MAMMOGRAPHY DIGITAL DIAGNOSTIC UNILATERAL RIGHT WITH CAD 02/18/2014. HISTORY: The recent screening mammogram dated 02/07/2014 showed asymmetric breast tissues in the right breast. FINDINGS: Mediolateral view and spot compression views were obtained. No significant mass or architectural distortion is seen. Procedure Note Gabi Durán MD - 02/19/2014 MAMMOGRAPHY DIGITAL DIAGNOSTIC UNILATERAL RIGHT WITH CAD 02/18/2014. HISTORY: The recent screening mammogram dated 02/07/2014 showed asymmetric breast tissues in the right breast. FINDINGS: Mediolateral view and spot compression views were obtained. No significant mass or architectural distortion is seen. IMPRESSION Impression: No evidence of malignancy. RECOMMENDATIONS: Bilateral annual screening mammogram. BI-RADS category one. Negative. Dictated from [facility] Robby Eldridge Jr., MD MAMMO ORDERABLES documented in this encounter Visit Diagnoses Diagnosis Abnormal mammogram Abnormal mammogram, unspecified documented in this encounter Care Teams Information Technology Security Analyst Relationship Specialty Start Date End Date [facility], External Provider [address] [place] [address] PCP - General Pain Management 01/30/14 06/17/20 documented as of this encounter
--- OUTSIDE RECORDS SUMMARY | 2024-08-05 12:09 | XMS_ITS | Encounter Summary ---
Author Organization [facility] Address [address] [place] [address] Care Team Providers Care Cold Mill Operator Name Role Phone [facility], External Provider Primary Care Provider U navailable Reason for Referral * Radiology Services (Routine) - Closed Specialty Diagnoses / Procedures Referred By Leonarda shultz Referred To Contact Diagnoses Visit for screening mammogram Procedures MAMMO SCREEN BILAT W OR WO Robby Perez Jr., MD NO ADDRESS ON FILE Referral ID Status Reason Start Date Expiration Date V isits Requested Visits Authorized [id number] Closed [facility] CTS 05/31/2018 07/01/2019 1 1 Reason for Visit * Radiology Services (Routine) - Closed Specialty Diagnoses / Procedures Referred By Contcarter shultz Referred To Contact Diagnoses Visit for screening mammogram Procedures MAMMO SCREEN BILAT W OR WO Robby Perez Jr., MD NO ADDRESS ON FILE Referral ID Status Reason Start Date Expiration Date V isits Requested Visits Authorized [id number] Closed [facility]TS 05/31/2018 07/01/2019 1 1 Encounter Details Date Type Department Care Team (Latest Contact Info) Description 05/31/2018 1:23 PM CDT - 05/31/2018 11:59 PM CDT Hospital Encounter [address] [address] Robby Eldridge Jr., MD NO [...] SCREEN BILAT W OR WO CAD Routine 05/31/2018 1:59 PM CDT Visit for screening mammogram documented in this encounter Results * MAMMO SCREEN BILAT W OR WO CAD (05/31/2018 1:59 PM CDT) Anatomical Region Laterality Modality Breast Bilateral Mammography 05/31/2018 1:59 PM CDT Impressions 06/01/2018 9:04 AM CDT IMPRESSION: No suspicious findings to suggest malignancy in either breast. Annual mammography is recommended. OVERALL ASSESSMENT: BI-RADS Category 1. Negative. DICTATION LOCATION: [facility] Narrative 06/01/2018 9:04 AM CDT BILATERAL FULL-FIELD DIGITAL SCREENING MAMMOGRAM WITH CAD DATE: 05/31/2018 1:59 PM HISTORY: Routine screening. TECHNIQUE: Full-field digital craniocaudal and mediolateral oblique projections of both breasts were obtained. Computer aided diagnosis was performed. COMPARISON: 05/18/2017 and older. BREAST COMPOSITION: Heterogeneously dense, which limits the sensitivity of mammography. FINDINGS: No suspicious mass, suspicious microcalcifications, or architectural distortion is identified in either breast. Computer aided detection was used in the interpretation of this examination. Procedure Note Frida Laguerre MD - 06/01/2018 BILATERAL FULL-FIELD DIGITAL SCREENING MAMMOGRAM WITH CAD DATE: 05/31/2018 1:59 PM HISTORY: Routine screening. TECHNIQUE: Full-field digital craniocaudal and mediolateral oblique projections of both breasts were obtained. Computer aided diagnosis was performed. COMPARISON: 05/18/2017 and older. BREAST COMPOSITION: Heterogeneously dense, which limits the sensitivity of mammography. FINDINGS: No suspicious mass, suspicious microcalcifications, or architectural distortion is identified in either breast. Computer aided detection was used in the interpretation of this examination. IMPRESSION: No suspicious findings to suggest malignancy in either breast. Annual mammography is recommended. OVERALL ASSESSMENT: BI-RADS Category 1. Negative. DICTATION LOCATION: [facility] Robby Eldridge Jr., MD MAMMO ORDERABLES documented in this encounter Visit Diagnoses Diagnosis Visit for screening mammogram Other screening mammogram documented in this encounter Care Teams Cold Mill Operator Relationship Specialty Start Date End Date [facility], External Provider [address] [place] [address] PCP - General Pain Management 01/30/14 06/17/20 documented as of this encounter
--- OUTSIDE RECORDS SUMMARY | 2024-08-05 12:09 | XMS_ITS | Encounter Summary ---
Author Organization [facility] Address [address] [place] [address] Care Team Providers Care Air Transport Professionals Name Role Phone [facility], External Provider Primary Care Provider U navailable Reason for Referral * Outpatient Services (Routine) - Closed Specialty Diagnoses / Procedures Referred By Leonarda shultz Referred To Contact Radiology Diagnoses Visit for screening mammogram Procedures MAMMO DIGITAL SCREEN Robby Cartagena Jr., MD NO ADDRESS ON FILE Referral ID Status Reason Start Date Expiration Date V isits Requested Visits Authorized [id number] Closed [facility] CTS 03/18/2016 04/18/2017 1 1 Reason for Visit * Outpatient Services (Routine) - Closed Specialty Diagnoses / Procedures Referred By Leonarda shultz Referred To Contact Radiology Diagnoses Visit for screening mammogram Procedures MAMMO DIGITAL SCREEN Robby Cartagena Jr., MD NO ADDRESS ON FILE Referral ID Status Reason Start Date Expiration Date V isits Requested Visits Authorized [id number] Closed [facility] CTS 03/18/2016 04/18/2017 1 1 Encounter Details Date Type Department Care Team (Latest Contact Info) Description 03/21/2016 2:29 PM CDT - 03/21/2016 11:59 PM CDT Hospital Encounter [address] [address] Robby Eldridge Jr., MD NO [...] SCREEN BILAT W OR WO CAD Routine 03/21/2016 2:44 PM CDT Visit for screening mammogram documented in this encounter Results * MAMMO DIGITAL SCREEN BILAT (03/21/2016 2:44 PM CDT) Anatomical Region Laterality Modality Breast Bilateral Mammography 03/21/2016 2:44 PM CDT Narrative 03/23/2016 7:24 AM CDT BILATERAL DIGITAL SCREENING MAMMOGRAM WITH CAD DATE: 03/21/2016 2:44 PM HISTORY: Routine yearly screening mammogram. TECHNIQUE: Standard images of both breasts were obtained on a digital system. CAD was utilized COMPARISON: 03/20/2015 and 02/07/2014 BREAST COMPOSITION: ??Heterogeneously dense, which limits the sensitivity of mammography FINDINGS: No dominant masses, suspicious calcifications, parenchymal asymmetry or areas of architectural distortion are identified in either breast. CAD was utilized. OVERALL ASSESSMENT: ??BI-RADS Category 1: ??Negative RECOMMENDATIONS: Recommend continued annual mammography. Procedure Note Ray Vanessa MD - 03/23/2016 BILATERAL DIGITAL SCREENING MAMMOGRAM WITH CAD DATE: 03/21/2016 2:44 PM HISTORY: Routine yearly screening mammogram. TECHNIQUE: Standard images of both breasts were obtained on a digital system. CAD was utilized COMPARISON: 03/20/2015 and 02/07/2014 BREAST COMPOSITION: Heterogeneously dense, which limits the sensitivity of mammography FINDINGS: No dominant masses, suspicious calcifications, parenchymal asymmetry or areas of architectural distortion are identified in either breast. CAD was utilized. OVERALL ASSESSMENT: BI-RADS Category 1: Negative RECOMMENDATIONS: Recommend continued annual mammography. Robby Eldridge Jr., MD MAMMO ORDERABLES documented in this encounter Visit Diagnoses Diagnosis Visit for screening mammogram Other screening mammogram documented in this encounter Care Teams Air Transport Professionals Relationship Specialty Start Date End Date [facility], External Provider [address] [place] [address] PCP - General Pain Management 01/30/14 06/17/20 documented as of this encounter
--- OUTSIDE RECORDS SUMMARY | 2024-08-05 12:09 | XMS_ITS | Encounter Summary ---
Author Organization [employer] Address [address] [place] [address] Care Team Providers Care Waste Examiner Name Role Phone Deonte Byrne MD Primary Care Provider Unavailab le Reason for Referral * Outpatient Services (Routine) - Closed Specialty Diagnoses / Procedures Referred By Leonarda shultz Referred To Contact Radiology Diagnoses Other screening mammogram Procedures MAMMO DIGITAL SCREEN Robby Cartagena Jr., MD NO ADDRESS ON FILE Referral ID Status Reason Start Date Expiration Date Visits Re quested Visits Authorized [id number] Closed 08/12/2010 02/08/2011 1 1 BAILER Reason for Visit * Outpatient Services (Routine) - Closed Specialty Diagnoses / Procedures Referred By Leonarda shultz Referred To Contact Radiology Diagnoses Other screening mammogram Procedures MAMMO DIGITAL SCREEN Robby Cartagena Jr., MD NO ADDRESS ON FILE Referral ID Status Reason Start Date Expiration Date Visits Re quested Visits Authorized [id number] Closed 08/12/2010 02/08/2011 1 1 Encounter Details Date Type Department Care Team (Latest Contact Info) Description 08/24/2010 3:37 PM BAG BAILER - 08/24/2010 11:59 PM BAG BAILER Hospital Encounter [facility] Mammography [facility] [place] [address] [place] [address] Robby Eldridge Jr., MD NO [...] SCREEN BILAT W OR WO CAD Routine 08/24/2010 3:49 PM BAG BAILER Other screening mammogram documented in this encounter Results * MAMMO DIGITAL SCREEN BILAT (08/24/2010 3:49 PM BAG BAILER) Anatomical Region Laterality Modality Breast Bilateral Mammography Impressions 08/30/2010 3:26 PM BAG BAILER : ?? Dense mammary parenchyma. ?? No mammographic evidence of malignancy. OVERALL ASSESSMENT: ??BIRADS category 1 - Negative Narrative 08/30/2010 3:26 PM BAG BAILER BILATERAL SCREENING DIGITAL MAMMOGRAMS WITH COMPUTER ASSISTED DIAGNOSIS DATE OF EXAM: ??08/24/2010 HISTORY: Annual screening study. Comparison mammograms dated 07/30/2008 and 08/19/2009. FINDINGS: ??The parenchyma is very dense bilaterally. ??This lowers the sensitivity of mammography in detecting disease. There is no mass, malignant calcification, lymphadenopathy, architectural distortion or other sign of malignancy. ?? The images were reviewed using the CAD system. Procedure Note Yelena Fish MD - 08/30/2010 BILATERAL SCREENING DIGITAL MAMMOGRAMS WITH COMPUTER ASSISTED DIAGNOSIS DATE OF EXAM: 08/24/2010 HISTORY: Annual screening study. Comparison mammograms dated 07/30/2008 and 08/19/2009. FINDINGS: The parenchyma is very dense bilaterally. This lowers thesensitivity of mammography in detecting disease. There is no mass,malignant calcification, lymphadenopathy, architectural distortion orother sign of malignancy. The images were reviewed using the CAD system. IMPRESSION: Dense mammary parenchyma. No mammographic evidence of malignancy. OVERALL ASSESSMENT: BIRADS category 1 - Negative Robby Eldridge Jr., MD MAMMO ORDERABLES documented in this encounter Visit Diagnoses Diagnosis Other screening mammogram documented in this encounter Care Teams Waste Examiner Relationship Specialty Start Date End Date Deonte Byrne MD PCP - General Family Practice 08/12/10 01/29/14 documented as of this encounter
== END 2024-07-29 09:46 | disposition home or self-care (01) ==
PROVIDERS: PCP Family Medicine; Visit Provider Family Medicine
DX: G47.00 Insomnia, unspecified (principal); M85.80 Other specified disorders of bone density and structure, unspecified site; Z78.0 Asymptomatic menopausal state; R73.9 Hyperglycemia, unspecified; E78.5 Hyperlipidemia, unspecified; E53.8 Deficiency of other specified B group vitamins; E55.9 Vitamin D deficiency, unspecified; Z13.29 Encounter for screening for other suspected endocrine disorder
CPT/HCPCS: 36415; 80053; 80061; 82306; 82607; 83036; 84443; 85025

== ENCOUNTER 2024-08-12 08:06 | Outpatient (CLI) | payer MEDICARE, SELFPAY ==
--- NOTE | ~2024-08-12 | MR_ITS ---
EXAMINATION: MR brain/brain stem wo con DATE: 08/12/2024 08:57 INDICATION: Dementia. Memory issues and increasing signs and symptoms involving cognitive functions. TECHNIQUE: Magnetic resonance imaging (MRI) of the brain and brainstem was performed without intraven ous contrast. Sequences included sagittal and axial T1-weighted SE, axial diffusion-weighted FS SE, a xial 3D SWAN, axial T2-weighted FLAIR, and axial T2-weighted FSE. Postcontrast axial and coronal T1-w eighted SE was obtained. Apparent diffusion coefficient (ADC) maps were created. COMPARISON: None. FINDINGS: There are no areas of restricted diffusion to suggest acute infarction. No intracranial hemorrhage or abnormal intracranial mass lesion. Small amount of scattered nonspecific increased T2-weighted signa l intensity in the cerebral white matter, predominantly involving the deep and periventricular white matter which is within normal limits for age. There are no intraparenchymal signal abnormalities seen on the other pulse sequences. Symmetric prominence of the sulci and ventricles consistent with mild age-appropriate diffuse cerebral volume loss. The ventricles are symmetric and normal in size. There are no abnormal extra-axial fluid collections. Flow voids are seen in the cerebral arteries on the T2 -weighted sequences consistent with their expected patency. Visualized orbits and soft tissues are un remarkable. Mild mucosal thickening in the bilateral ethmoid sinuses. IMPRESSION: 1. Normal aging brain. No acute intracranial process. Reviewed, dictated and finalized at location B. LATORY SPECIALIST
== END 2024-08-12 08:07 | disposition home or self-care (01) ==
PROVIDERS: PCP Psychiatry & Neurology Neurology; Visit Provider Family Medicine
DX: R41.89 Other symptoms and signs involving cognitive functions and awareness (principal)
CPT/HCPCS: 70551

== ENCOUNTER 2025-03-25 15:19 | Outpatient (CLI) | payer MEDICARE, SELFPAY ==
--- OUTSIDE RECORDS SUMMARY | 2025-03-25 15:35 | XMS_ITS | Encounter Summary ---
Author Organization [employer] Address 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
--- OUTSIDE RECORDS SUMMARY | 2025-03-25 15:35 | XMS_ITS | Clinical Summary ---
Author Organization [facility] Address [address] [place] [address] Care Team Providers Care Wood Floor Layer Name Role Phone Unavailable Primary Care Provider [...] Health Maintenance Due Date Last Done Comments Hepatitis C Virus (HCV) Screening 1955 Cologuard 1998 Colonoscopy 1998 Colorectal Cancer Screening 1998 Immunochemical Fecal Occult Blood 1998 Zoster Immunization (1 of 2) 12/07/2003 SARS-COV-2 Immunization ( season) 2024 06/11/2021, 10/30/2020, 10/09/2020 Influenza Immunization (#1) 2025 09/3 , 05/24/2019, 06/01/2018, Additional history exists Respiratory Syncytial Virus (RSV) Immunization (Adult) (1 - 1-dose 75+ series) 2028 DTaP/Tdap/Td Immunization Discontinued 09/19/2020, TdaP Immunization Completed 09/19/2020, 08/11/2006 Pneumococcal Immunization (50+ years) Completed 09/24/2020, 04/12/2019 Hepatitis B Immunization Aged Out No longer eligible based on patient's age to complete this topic Human Papillomavirus (HPV) Immunization Aged Out No longer eligible based on patient's age to complete this topic Meningococcal Immunization (ACWY) Aged Out No longer eligible based on patient's age to complete this topic Rotavirus Immunization Aged Out No lo nger eligible based on patient's age to complete this topic
--- OUTSIDE RECORDS SUMMARY | 2025-03-25 15:35 | XMS_ITS | Encounter Summary ---
Author Organization [employer] Address 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
--- OUTSIDE RECORDS SUMMARY | 2025-03-25 15:35 | XMS_ITS | Encounter Summary ---
Author Organization [employer] [facility] Address 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
--- OUTSIDE RECORDS SUMMARY | 2025-03-25 15:35 | XMS_ITS | Encounter Summary ---
Author Organization [employer] Address [address] [place] [address] Care Team Providers Care Assistant Operations Manager Name Role Phone Gita Bowman MD [...] on file Legal Sex Female 4:30 AM JOB CHECKER Gender Identity Not on file Sexual Orientation Not on file documented as of this encounter Plan of Treatment Not on file documented as of this encounter Procedures Procedure Name Priority Date/Time Associated Diagnosis Comments MAMMO SCREEN BILAT W OR WO CAD Routine 07/30/2008 3:23 PM JOB CHECKER documented in this encounter Results * MAMMO DIGITAL SCREEN BILAT (07/30/2008 3:23 PM JOB CHECKER) Anatomical Region Laterality Modality Breast Bilateral Other 07/30/2008 3:23 PM JOB CHECKER Narrative 08/01/2008 12:49 PM JOB CHECKER [facility] [address] [place], [place] [address] Admit Date: 07/30/2008 RENETTA BROCK Sex: F Admit Prov: ROBBY MEJÍA Date: 1955 Primary Care Prov: CMRN: [id number] Room: [facility] SSN: [id number] IMAGING SERVICES Ordering Prov: ROBBY MEJÍA Accession Number: [id number] Interpretation BILATERAL SCREENING DIGITAL MAMMOGRAMS WITH COMPUTER ASSISTED DIAGNOSIS 07/30/2008 History: Annual screening study. Comparison is made to 03/07/05. The images were reviewed using the CAD system. The breast parenchyma is heterogeneously dense. No new dominant masses, suspicious calcifications or areas of parenchymal asymmetry or distortion are identified. Impression: Stable screening mammogram Recommend routine followup Overall assessment: BIRADS category 1 - Negative Assessment BIRADS: 1-Negative Recommendation: Normal interval follow-up Dictated by: JACQUIE MARIE Electronically signed by: JACQUIE MARIE 08/01/2008 12:47 Transcribed: 07/31/2008 16:53 AMK Procedure Note Jacquie Marie - 08/01/[address] [address] Admit Date: 07/30/2008 RENETTA BROCK Sex: F Admit Prov: ROBBY MEJÍA Date: 1955 Primary Care Prov: CMRN: [id number] Room: [facility] SSN: [id number] IMAGING SERVICES Ordering Prov: ROBBY MEJÍA Interpretation BILATERAL SCREENING DIGITAL MAMMOGRAMS WITH COMPUTER ASSISTEDDIAGNOSIS 07/30/2008 History: Annual screening study. Comparison is made to 03/07/05. The images were reviewed using theCAD system. The breast parenchyma is heterogeneously dense. No newdominant masses, suspicious calcifications or areas of parenchymal asymmetryor distortion are identified. Impression: Stable screening mammogram Recommend routine followup Overall assessment: BIRADS category 1 - Negative Assessment BIRADS: 1-Negative Recommendation: Normal interval follow-up Dictated by: JACQUIE MARIE Electronically signed by: JACQUIE MARIE 08/01/2008 12:47 Transcribed: 07/31/2008 16:53 AMK Robby Mejía Jr., MD MAMMO ORDERABLES Final Res ult documented in this encounter Visit Diagnoses Diagnosis Other screening mammogram documented in this encounter Care Teams Assistant Operations Manager Relationship Specialty Start Date End Date Gita Bowman MD [address] [place] [phone] PCP - General Family Practice 06/18/20 documented as of this encounter
--- OUTSIDE RECORDS SUMMARY | 2025-03-25 15:35 | XMS_ITS | Clinical Summary ---
Author Organization [employer] [facility] [employer] Address [address] [facility] [place] [address] Phone Care Team Providers Care Rolling Up Machine Operator Name Role Phone Gita Bowman MD Primary Care Provider Family History Medical History Relation Name Comments Breast Cancer Maternal Grandmother 40's Cancer Neg Hx Ovarian Cancer Neg Hx Relation Name Status Comments Maternal Grandmother Social History Tobacco Use Types Packs/Day Years Used Date Smoking Tobacco: Never Assessed Comments Unknown Sex and Gender Information Value Date Recorded Sex Assigned at Not on file Legal Sex Female 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 VP OF DIGITAL MARKETING Gender Identity Not on file Sexual Orientation Not on file Occupation Industry Job Start Date Job End Date Not on file Not on file Not on file Not on file Plan of Treatment Health Maintenance Due Date Last Done Comments DTAP/TDAP/TD VACCINES (1 - Tdap) 1972 COLORECTAL SCREENING 1998 Colorectal Cancer Screening 1998 FIT-DNA Q 3 years 1998 FIT/FOBT Q 1 year 1998 Flex Sig/CT Colonography Q 5 years 1998 PNEUMOCOCCAL VACCINE 50+ YEA RS (1 of 1 - PCV) 12/07/2003 ZOSTER VACCINE (1 of 2) 12/07/2003 OSTEOPOROSIS SCREENING 2018 COVID-19 Vaccine (2 - 2023-2 5 season) 2024 06/11/2021 BREAST CANCER SCREENING 08/03/2024 08/03/20 23, 08/02/2022, 06/28/2021, Additional history exists INFLUENZA VACCINE (#1) 2025 8, 05/24/2017, 05/20/2016 RSV VACCINE (60+ or ) (1 - 1-dose 75+ series) 2028 Procedures Procedure Name Priority Date/Time Associated Diagnosis Comments MAMMO 3D LUIS SCREEN BILAT W OR WO CAD Routine 08/03/2023 11:20 AM VP OF DIGITAL MARKETING Visit for screening mammogram from Last 3 Months or Most Recently Relevant to Health Maintenance Results * MAMMO SCRN BILAT 3D LUIS W OR WO CAD (08/03/2023 11:20 AM VP OF DIGITAL MARKETING) Anatomical Region Laterality Modality Breast Bilateral Mammography Impressions 08/03/2023 1:15 PM VP OF DIGITAL MARKETING : No mammographic evidence of malignancy. BI-RADS ASSESSMENT: 1 - Negative RECOMMENDATION: Routine annual screening mammography. Narrative 08/03/2023 1:15 PM VP OF DIGITAL MARKETING EXAM: MAMMO SCRN BILAT 3D LUIS W OR WO CAD INDICATION: Screening COMPARISON: 08/02/2022 MAMMO SCRN BILAT 3D LUIS W OR WO CAD, 06/28/2021 MAMMO SCRN BILAT 3D LUIS W OR WO CAD, and 06/25/2020 MAMMO SCREEN BILAT W OR WO CAD BREAST COMPOSITION: The breasts are heterogeneously dense, which may obscure small masses. FINDINGS: RIGHT BREAST: There are no suspicious masses, calcifications, or areas of architectural distortion. LEFT BREAST: There are no suspicious masses, calcifications, or areas of architectural distortion. Mary Padgett MD MAMMO ORDERABLES Final Result from Last 3 Months or Most Recently Relevant to Health [place] [address] [employer] PPO [facility] Care Teams Rolling Up Machine Operator Relationship Specialty Start Date End Date Gita Bowman MD [address] [place] [phone] PCP - General Family Practice 06/18/20
--- OUTSIDE RECORDS SUMMARY | 2025-03-25 15:35 | XMS_ITS | Encounter Summary ---
Author Organization [facility] Address 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
[2025-03-25 19:42] LABS: Alanine Aminotransferase 21 U/L (6-35); Albumin Level 4.1 g/dL (3.5-5.1); Alkaline Phosphatase 68 U/L (38-126); Anion Gap 5 mmol/L (4-12); Aspartate Amino Transferase 44 U/L (14-36); Bilirubin,Total 0.6 mg/dL (0.2-1.3); Blood Urea Nitrogen 17 mg/dL (7-17); Calcium 9.5 mg/dL (8.4-10.2); Carbon Dioxide 29 mmol/L (22-30); Chloride 104 mmol/L (98-107); Estimated Glomerular Filt Rate 60; Glucose 108 mg/dL (65-110); Sodium 138 mmol/L (137-145); Total Protein 7.7 g/dL (6.3-8.2)
[2025-03-25 19:49] LABS: Potassium 4.3 mmol/L (3.4-5.0)
[2025-03-25 20:33] LABS: Hemoglobin A1C 6.1 % (<5.7)
== END 2025-03-25 15:20 | disposition home or self-care (01) ==
LOC: ANHGOSHLAB 15:19
PROVIDERS: PCP Family Medicine; Visit Provider Family Medicine
DX: I10 Essential (primary) hypertension (principal); R73.03 Prediabetes
CPT/HCPCS: 36415; 80053; 83036

== ENCOUNTER 2025-06-01 16:53 | Emergency (ER) | payer MEDICARE, OTHER, SELFPAY ==
--- OUTSIDE RECORDS SUMMARY | 2010-06-14 10:30 | XMS_ITS | Continuity of Care Document ---
Author Organization [facility] Address [address] [place] [address] [place] [address] Phone Care Team Providers Care Respiratory Care Practitioner Name Role Phone Kudleep Nicole Unavailable Unavailable Procedures Procedure Date Visual Field Examination(s) Office/outpatient Visit, Est Fundus Photography W/ Report Optic Nerve Topography Optic Nerve Topography Visual Field Examination(s) Office Consultation Corneal Pachymetry Advance Directives Directive Yes / No Effective Date File Name No Information Encounters Encounter Description Practice Location Reason(s) For Visit Diagnoses Date Provider Providers Copied on Encounter [facility], [id number] [place], [place] [address], [place], [place], [id number], tel:[phone] [facility] No Information 0 Corey Light. [facility] , [facility] [address], [place], [address], [place]. tel:[phone] Referring Provider: Pranay Gomez [facility] [address], [place], [address]. tel:[phone] Office/outpati ent Visit, Est [facility], [address] [place] [address] [address], [place], [place], [address], tel:[phone] [facility] No Information 0-201 0 Angel Jassi. [facility] Randa Machado [facility], [place], [address], [place]. tel:[phone] Referring Provider: Jassi davies, [facility] [address] [place] [address], [place], [place], [facility]. tel:[phone] [facility], [address] [place] [address] [address], [place], [place], [id number], tel:[phone] [facility] No Information 3200 9 Krishnasamy Jassi. [facility] Corporate [facility] [address], [place], [facility], [place]. tel:[phone] Referring Provider: Jassi davies, [address] [place], [place] [address]ate [place] [address], [place], [place], [facility]. tel:[phone] [facility], [address] [facility] [address], [place], [place], [address], [place] tel:[phone] [facility] No Information 200 9 Krishnasamy Jassi. [address] [place], [place] [address]ate [address], [facility], [place]. tel:[phone] Referring Provider: Jassi davies, [address] [place], [place] [address], [facility]. tel:[phone] Office Consultation [facility], [address] [place], [place] [address], [place], [place], [address], tel:[phone] [facility] No Information 2200 9 Krishnasamy Jassi. [facility] [address], [facility], [place]. tel:[phone] Referring Provider: Leonard Edge OD, [address], [address]. tel:[phone] Family History Family Member Type Diagnosis Age At Onset No Information Payers Payer name Insurance type Covered alliance party ID Authoriza tion(s) No Information Social History Type Description Quantity Date Captured Comments Sex Female Smoking Status No Information Chief Complaint And Reason For Visit No Information Reason For Referral Reason For Referral No Information History Of Present Illness Encounter Date Complaint History Of Prese nt Illness No Information Functional Status Date Functional Assessmen t No Information Instructions Date Instruction Additional Infor mation No Information Assessments Type Assessment Date No Information Patient Care Teams Name Effective Dates (start - stop) Status Members No Information
--- OUTSIDE RECORDS SUMMARY | 2015-11-13 05:00 | XMS_ITS | Continuity of Care Document ---
Author Organization [facility] Address [address] [place] [address] Phone Care Team Providers Care Styrene Dehydration Reactor Operator Name Role Phone Bridgette Luo DPT Unavailable Unavailable Procedures Procedure Date PT RE-EVALUATION THERAPEUTIC EXERCISES NEUROMUSCULAR RE-ED FUNC ACTIVITY THERAPEUTIC EXERCISES NEUROMUSCULAR RE-ED FUNC ACTIVITY THERAPEUTIC EXERCISES NEUROMUSCULAR RE-ED FUNC ACTIVITY THERAPEUTIC EXERCISES NEUROMUSCULAR RE-ED FUNC ACTIVITY THERAPEUTIC EXERCISES NEUROMUSCULAR RE-ED FUNC ACTIVITY THERAPEUTIC EXERCISES NEUROMUSCULAR RE-ED MANUAL THERAPY FUNC ACTIVITY THERAPEUTIC EXERCISES NEUROMUSCULAR RE-ED FUNC ACTIVITY THERAPEUTIC EXERCISES NEUROMUSCULAR RE-ED MANUAL THERAPY FUNC ACTIVITY PT EVALUATION THERAPEUTIC EXERCISES FUNC ACTIVITY Advance Directives Directive Yes / No Effective Date File Name No Information Encounters Encounter Description Practice Location Reason(s) For Visit Diagnoses Date Provider Providers Copied on Encounter [facility], [address], [place], [place], [id number], [place] tel:[phone] [place] No Information Apr-0 1-201 6 Valerio Bridgette. [address] [place] [address], [address], [place], [place], [facility], . [phone] Referring Provider: Davin Evans, [address] [facility] [address], [place], [address]. tel:[phone], [place], [address], tel:[phone] [facility] No Information Mar-3 0-201 6 Valerio Bridgette. [address] [place] [address], [address], [place], [place], [facility], [place]. tel:[phone] Referring Provider: Davin Evans [address] [facility] [address], [place], [place], [facility]. tel:[phone], [id number], tel:[phone] [facility] No Information Mar-2 9-201 6 Buna Bridgette. [address] [place] [address], [address], [place], [facility], [place]. tel:[phone] Referring Provider: Davin Evans [address] [facility] [address], [place], [address]. tel:[phone], [place], [address], tel:[phone] [place] No Information Mar-2 5-201 6 Valerio Bridgette. [address] [place] [address], [address], [place], [place], [facility], [place]. tel:[phone] Referring Provider: Davin Evans, [address] [facility] [address], [place], [address]. tel:[phone], [id number], tel:[phone] [place] No Information Mar-2 3-201 6 Valerio Bridgette. [address] [place] [address], [address], [place], [facility], . tel:[phone] Referring Provider: Davin Evans [address] [facility] [address], [place], [address]. tel:[phone] [place] [address], [place], [place], [address], tel:[phone] [place] No Information Oct-2 1-201 6 Buna Bridgette. [address] [place] [address], [address], [place], [facility], . tel:[phone] Referring Provider: Davin Evans, [address] [facility] [address], [place], [address]. tel:[phone] [address], [place], [place], [address], [place] tel:[phone] [place] No Information Oct- 8- 6 Valerio Bridgette. [address] [place] [address], [address], [place], [facility], . tel:[phone] Referring Provider: Davin Evans, [address] [facility] [address], [place], [address]. tel:[phone], [id number], tel:[phone] [place] No Information Oct- 6-201 6 Buna Bridgette. [address] [place] [address], [address], [place], [facility], . tel:[phone] Referring Provider: Davin Evans [address] [facility] [address], [place], [address]. tel:[phone], [address], tel:[phone] [place] Pain in left kneeMuscle weakness (generalized)Bi lateral primary osteoarthritis of knee Oct- 4-201 6 Valerio Bridgette. [address] [place] [address], [address], [place], [facility], . tel:[phone] Referring Provider: Davin Evans [address] [facility] [address], [place], [address]. tel:[phone] Family History Family Member Type Diagnosis Age At Onset No Information Payers Payer name Insurance type Covered democrat ID Authoriza tion(s) No Information Social History [...]
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
[2025-06-01 16:57] VITALS: BP 155/65; PULSE 70; RESP 17; TEMP 36.4; O2SAT 100
--- NOTE | 2025-06-01 18:56 | ECG_ITS ---
Test Date: 2025-06-01 19:06:22 Measurements Intervals [place] Rate: 73 P: 80 MS: 143 QRS: 36 QRSD: 80 T: 3 QT: 330 QTc: 365 Interpretive Statements SINUS RHYTHM WITH OCCASIONAL SUPRAVENTRICULAR PREMATURE COMPLEXES POSSIBLE RIGHT VENTRICULAR CONDUCTION DELAY NONSPECIFIC ST-T WAVE ABNORMALITY- ANT/INF LEADS BASELINE ARTIFACT- I, II, III, AVR, AVL, AVF, V4-V6 BORDERLINE ECG No previous ECG available for comparison Electronically Signed On 06-01-2025 20:41:17 CDT by Jose Dumont D.O.
[2025-06-01 19:28] LABS: Hematocrit 38.4 % (37.0-47.0); Hemoglobin 12.4 g/dL (12.0-15.0); Immature Granulocyte Percent A 0.5 % (0-0.5); Lymphocytes Absolute Auto 0.96 K/mm3 (0.9-3.2); Mean Corpuscular HGB Conc 32.3 g/dl (32-36); Mean Corpuscular Hemoglobin 27.0 pg (26-34); Mean Corpuscular Volume 83.5 fl (80-100); Nucleated Red Blood Cells Absolute Auto 0.000 K/mm3 (0.0-0.012); Nucleated Red Blood Cells Perc 0.0 % (0.0-0.2); Platelet Count Result 187 k/mm3 (150-375); Red Blood Count 4.60 M/mm3 (4.2-5.4); White Blood Count 13.3 K/mm3 (4.5-10.0)
[2025-06-01 19:41] LABS: Alanine Aminotransferase 46 U/L (6-35); Albumin Level 4.2 g/dL (3.5-5.1); Alkaline Phosphatase 78 U/L (38-126); Anion Gap 8 mmol/L (4-12); Aspartate Amino Transferase 75 U/L (14-36); Bilirubin,Total 0.9 mg/dL (0.2-1.3); Blood Urea Nitrogen 17 mg/dL (7-17); Calcium 8.9 mg/dL (8.4-10.2); Carbon Dioxide 26 mmol/L (22-30); Chloride 102 mmol/L (98-107); Estimated CRCL calculation 48 ml/min; Estimated Glomerular Filt Rate > 60; Glucose 124 mg/dL (65-110); Potassium 3.6 mmol/L (3.4-5.0); Sodium 136 mmol/L (137-145); Total Protein 7.6 g/dL (6.3-8.2)
--- OUTSIDE RECORDS SUMMARY | 2025-06-01 19:51 | XMS_ITS | Encounter Summary ---
Author Organization [facility] Address [address] [place] [address] Care Team Providers Care Canal Equipment Maintenance Supervisor Name Role Phone Gita Bowman MD Primary Care Provider Encounter Details Date Type Department Care Team (Latest Contact Info) Description 06/02/2006 Outpatient Historical HIS [facility] ADRIEL Eldridge Jr., Robby Koenig MD NO ADDRESS ON FILE Other Screening Mammogram (Primary Dx) Social History Tobacco Use Types Packs/Day Years Used Date Smoking Tobacco: Never Assessed Comments Unknown Sex and Gender Information Value Date Recorded Sex Assigned at Not on file Legal Sex Female 4:30 AM PRECISION ASSEMBLER BENCH Gender Identity Not on file Sexual Orientation Not on file documented as of this encounter Plan of Treatment Not on file documented as of this encounter Visit Diagnoses Diagnosis Other screening mammogram- Primary documented in this encounter Care Teams Canal Equipment Maintenance Supervisor Relationship Specialty Start Date End Date Gita Bowman MD [address] [place] [address] PCP - General Family Practice 06/18/20 documented as of this encounter
--- OUTSIDE RECORDS SUMMARY | 2025-06-01 19:51 | XMS_ITS | Encounter Summary ---
Author Organization [employer] Address [address] [place] [address] Care Team Providers Care Communication Spec Name Role Phone Gita Bowman MD Primary [...] on file Legal Sex Female 4:30 AM CERAMIST Gender Identity Not on file Sexual Orientation Not on file documented as of this encounter Plan of Treatment Not on file documented as of this encounter Visit Diagnoses Diagnosis Other screening mammogram- Primary documented in this encounter Care Teams Communication Spec Relationship Specialty Start Date End Date Gita Bowman MD [address] [place] [phone] PCP - General Family Practice 06/18/20 documented as of this encounter
--- OUTSIDE RECORDS SUMMARY | 2025-06-01 19:51 | XMS_ITS | Clinical Summary ---
Author Organization [employer] Matthew Anders Address [address] [place] [address] Phone Care Team Providers Care Chair Trimmer Name Role Phone Gita Bowman MD Primary [...] on file Legal Sex Female 4:30 AM GEARCASE ASSEMBLER Gender Identity Not on file Sexual Orientation [...] (1 of 2) 12/07/2003 OSTEOPOROSIS SCREENING 2018 BREAST CANCER SCREENING 08/03/2024 08/03/20 23, 08/02/2022, 06/28/2021, Additional history exists INFLUENZA VACCINE (#1) 2025 8, 05/24/2017, 05/20/2016 COVID-19 Vaccine (2 - 2024-2 6 season) 2025 06/11/2021 RSV VACCINE (60+ or ) (1 - 1-dose 75+ series) 2028 Procedures Procedure Name Priority Date/Time Associated Diagnosis Comments MAMMO 3D LUIS SCREEN BILAT W OR WO CAD Routine 08/03/2023 11:20 AM GEARCASE ASSEMBLER Visit for screening mammogram from Last 3 Months or Most Recently Relevant to Health Maintenance Results * MAMMO SCRN BILAT 3D LUIS W OR WO CAD (08/03/2023 11:20 AM GEARCASE ASSEMBLER) Anatomical Region Laterality Modality Breast Bilateral Mammography Impressions 08/03/2023 1:15 PM GEARCASE ASSEMBLER : No mammographic evidence of malignancy. BI-RADS ASSESSMENT: 1 - Negative RECOMMENDATION: Routine annual screening mammography. Narrative 08/03/2023 1:15 PM GEARCASE ASSEMBLER EXAM: MAMMO SCRN BILAT 3D LUIS W [...] Most Recently Relevant to [place] [address] [employer] PPO [facility] Care Teams Chair Trimmer Relationship Specialty Start Date End Date Gita Bowman MD [address] [place] [phone] PCP - General Family Practice 06/18/20
--- OUTSIDE RECORDS SUMMARY | 2025-06-01 19:51 | XMS_ITS | Encounter Summary ---
Author Organization [employer] Address 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
--- OUTSIDE RECORDS SUMMARY | 2025-06-01 19:51 | XMS_ITS | Encounter Summary ---
Author Organization [facility] Address 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
--- OUTSIDE RECORDS SUMMARY | 2025-06-01 19:51 | XMS_ITS | Encounter Summary ---
Author Organization [employer] Address [address] [place] [address] Care Team Providers Care Kettle Skimmer Name Role Phone Gita Bowman MD Primary [...] on file Legal Sex Female 4:30 AM GASOLINE TRACTOR OPERATOR Gender Identity Not on file Sexual Orientation Not on file documented as of this encounter Plan of Treatment Not on file documented as of this encounter Procedures Procedure Name Priority Date/Time Associated Diagnosis Comments MAMMO SCREEN BILAT W OR WO CAD Routine 07/30/2008 3:23 PM GASOLINE TRACTOR OPERATOR documented in this encounter Results * MAMMO DIGITAL SCREEN BILAT (07/30/2008 3:23 PM GASOLINE TRACTOR OPERATOR) Anatomical Region Laterality Modality Breast Bilateral Other 07/30/2008 3:23 PM GASOLINE TRACTOR OPERATOR Narrative 08/01/2008 12:49 PM GASOLINE TRACTOR OPERATOR [facility] [address] [place], [place] [address] Admit Date: 07/30/2008 RENETTA BROCK Sex: F Admit Prov: ROBBY MEJÍA Date: 1955 Primary Care Prov: CMRN: [id number] Room: [facility] SSN: [id number] IMAGING SERVICES Ordering Prov: ROBBY MEJÍA Accession Number: [id number] Interpretation BILATERAL SCREENING DIGITAL MAMMOGRAMS WITH COMPUTER [...] [facility] Procedure Note Jacquie Marie - 08/01/[address] [address] Admit Date: 07/30/2008 RENETTA BROCK Sex: F Admit Prov: ROBBY MEJÍA Date: 1955 Primary Care Prov: CMRN: [id number] Room: [facility] SSN: [id number] IMAGING SERVICES Ordering Prov: ROBBY MEJÍA Interpretation [...] mammogram documented in this encounter Care Teams Kettle Skimmer Relationship Specialty Start Date End Date Gita Bowman MD [address] [place] [phone] PCP - General Family Practice 06/18/20 documented as of this encounter
--- OUTSIDE RECORDS SUMMARY | 2025-06-01 19:51 | XMS_ITS | Clinical Summary ---
Author Organization [facility] Address [address] [place] [address] Care Team Providers Care Oil Well Engineer Name Role Phone Heaven Moran MD Primary Care Provider Un available Matt Antonio MD Unavailable Source Comments [facility],non-owned Affiliates and Associated Physician Practices is amultiple site organization consisting of ambulatory clinics and hospital sitesin [place], [place], [place] and [place]. This disclosure is being madepursuant to the Care Everywhere program and may not contain all information available regarding this patient. Last updated 18.[facility] Allergies Active Allergy Reactions Criticality Noted Date Comments Sesame Oil 05/24/2017 Medications * Be aware that medications may not be up to date on this document. Alwaysverify current medications with the patient. estradiol (ESTRACE) 0.1 MG/GM vaginal cream APPLY 1 GRAM VAGINALLY TWICE WEEKLY 9 Active Active Problems Problem Noted Date Diagnosed Date Primary osteoarthritis of right knee 09/20/2019 Immunizations Immunization Administration Dates Next Due FLU VACCINE QUAD [...] at Not on file Legal Sex Female 9:57 AM CDT Gender Identity Not on file Sexual Orientation Not on file Last Filed Vital Signs Vital Sign Reading Time Taken Comments Blood Pressure - - Pulse - - Temperature - - Respiratory Rate - - Oxygen Saturation - - Inhaled Oxygen Concentration - - Weight 68.5 kg (151 lb) 09/20/2019 11:00 AM APPRENTICE PLANT ATTENDANT Height 154.9 cm (5' 1) 09/20/2019 11:00 AM APPRENTICE PLANT ATTENDANT Body Mass Index 28.53 09/20/2019 11:00 AM APPRENTICE PLANT ATTENDANT Plan of Treatment Health Maintenance Due Date [...] 12/02/1971 DTAP/TDAP/TD VACCINES (1 - Tdap) 1972 PNEUMOCOCCAL VACCINE 50+ (1 of 1 - PCV) 12/07/2003 ZOSTER VACCINE (1 of 2) 12/07/2003 SCREENING FOR DIABETES 09/20/2019 DEPRESSION SCREENING 08/14/2024 COVID-19 VACCINE (1 - 2023-2 5 season) 2025 INFLUENZA VACCINE (#1) 2025 8, 05/24/2017, 05/20/2016 Respiratory Syncytial Virus (RSV) [...] patient's age to complete this topic MENINGOCOCCAL (Group B) VACCINE SHARED DECISION-MAKING Aged Out No longer eligible based on patient's age to complete this topic MENINGOCOCCAL GROUPS A/C/Y/W VACCINE Aged Out No longer eligible b ased on patient's age to complete this topic Insurance [facility] MANAGED MEDICARE ADV Care Teams Oil Well Engineer Relationship Specialty Start Date End Date Heaven Moran MD [address] [place] [address] PCP - General Family Medicine 09/20/19 [place] [address] [address] [facility] [address] [place] [address] Orthopedic Surgery 09/20/19
[2025-06-01 19:52] LABS: Troponin I < 0.012 ng/mL (0.000-0.034)
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
[2025-06-01] MEDS: HYDROcodone/acetaminophen (*CRX) 5-325 MG TABLET 1 TAB PO (23:51)
[2025-06-02 02:29] VITALS: BP 145/65; PULSE 86; RESP 18; O2SAT 99
== END 2025-06-02 02:31 | disposition short-term general hospital (02) ==
PROVIDERS: Emergency Provider Physician Assistant; PCP Family Medicine
DX: S82.831A Other fracture of upper and lower end of right fibula, initial encounter for closed fracture (principal); S22.22XA Fracture of body of sternum, initial encounter for closed fracture; S22.31XA Fracture of one rib, right side, initial encounter for closed fracture; G30.9 Alzheimer's disease, unspecified; F02.80 Dementia in other diseases classified elsewhere, unspecified severity, without behavioral disturbance, psychotic disturbance, mood disturbance, and anxiety; R73.03 Prediabetes; M85.80 Other specified disorders of bone density and structure, unspecified site; Z79.899 Other long term (current) drug therapy; I49.1 Atrial premature depolarization; R94.31 Abnormal electrocardiogram [ECG] [EKG]; V49.40XA Driver injured in collision with unspecified motor vehicles in traffic accident, initial encounter
CPT/HCPCS: 36415; 70450; 71260; 72125; 73562; 73590; 74177; 80053; 84484; 85025; 93005; 99285; A9270; Q9967